=== PATIENT | female | born 1945 | race Two or more races ===

== ENCOUNTER 2020-02-28 20:21 | Inpatient (IN) | payer MEDICARE, MEDICAID ==
[~2020-02-28] VITALS: Ht 167.6 cm; Wt 63.5 kg
[~2020-02-28 20:21] MED LIST: ASPIR 8181 MG ORAL; HYDRALAZINE HCL25 M1 ORAL; HYDROCHLOROTHIA25 MG ORAL; VITAMIN D400 UNI2 PO
--- NOTE | 2020-02-28 20:24 | Emergency Room Report ---
History of Present Illness General Source: Patient, EMS (Claudio Colvin MD) Present Illness HPI Patient is a 74-year-old female brought in by EMS after increased generalized weakness. Patient was noted to have increased difficulty with breathing. No prior history of breast cancer. She had been receiving chemotherapy. Had not been having any vomiting. Denies any fever or cough. Gradual onset of general weakness. She been seen by her oncologist today.Patient is followed by oncologist whose office is in [place].Patient reports having a stage I breast cancer and had right-sided mastectomy in 2017. Denies any other prior history of cancer. Had been undergoing chemotherapy but had not been on chemotherapy recently. (Claudio Colvin MD) Allergies: Coded Allergies: No Known Allergies (Unverified , 11/07/19) Patient History Past Medical History: see triage record Reviewed Nursing Documentation: PMH: Agreed; PSxH: Agreed (Claudio Colvin MD) Review of Systems All Other Systems: negative except mentioned in HPI (Claudio Colvin MD) Physical Exam Sp02 EP Interpretation: reviewed, normal General Appearance: normal inspection, alert, GCS 15, Chronically Ill Head: atraumatic ENT: normal ENT inspection, hearing grossly normal, normal voice Neck: normal inspection, full range of motion, supple, no bony tend Respiratory: normal inspection, no respiratory distress, no retraction, no wheezing Cardiovascular #1: regular rate, rhythm, no edema Gastrointestinal: normal inspection, normal bowel sounds, non tender, soft, no guarding, no hernia Genitourinary: no CVA tenderness Musculoskeletal: normal inspection, back normal, normal range of motion Neurologic: alert, whipper beater III-XII nml as tested, oriented x3, responsive, speech normal, normal inspection Psychiatric: normal inspection, judgement/insight normal, mood/affect normal Skin: no rash (Claudio Colvin MD) Medical Decision Making Diagnostic Impression: Primary Impression: Episode of generalized weakness Additional Impressions: Breast CA Lymphopenia Pleural effusion, right New onset type 2 diabetes mellitus ARF (acute renal failure) Qualified Codes: N17.9 - Acute kidney failure, unspecified ER Course Patient presented for shortness of breath. Differential diagnosis include was not limited to pneumonia, bronchitis, pulmonary embolism, pleural effusion among others. Because of complexity of patient's case laboratory tests and imaging studies were ordered. Patient was noted to have prior history of breast cancer. Given the patient's shortness of breath or broad work up will be initiated.EKG interpreted by me showed normal sinus rhythm with a rate of [address] angiogram of the chest was ordered due to patient's markedly elevated d-dimer. Patient's CBC was noted for some pro myelocytes.Patient's metabolic panel was noted to have hemolyzed. Patient will be admitted to Dr. Magallon. Labs Test 02/28/20 20:00 02/28/20 21:00 White Blood Count 10.3 K/UL (4.8-10.8) Red Blood Count 5.88 M/UL (4.20-5.40) Hemoglobin 14.9 G/DL (12.0-16.0) Hematocrit 49.9 % (37.0-47.0) Mean Corpuscular Volume 85 FL (80-99) Mean Corpuscular Hemoglobin 25.3 PG (27.0-31.0) Mean Corpuscular Hemoglobin Concent 29.8 G/DL (32.0-36.0) Red Cell Distribution Width 14.5 % (11.6-14.8) Platelet Count 305 K/UL (150-450) Mean Platelet Volume 13.7 FL (6.5-10.1) Neutrophils (%) (Auto) % (45.0-75.0) Lymphocytes (%) (Auto) % (20.0-45.0) Monocytes (%) (Auto) % (1.0-10.0) Eosinophils (%) (Auto) % (0.0-3.0) Basophils (%) (Auto) % (0.0-2.0) Erythrocyte Sedimentation Rate 15 MM/HR (0-30) D-Dimer 9.00 mg/L FEU (0.00-0.49) Urine Color Pale yellow Urine Appearance Clear Urine pH 5 (4.5-8.0) Urine Specific [place] 1.010 (1.005-1.035) Urine Protein 1+ (NEGATIVE) Urine Glucose (UA) 4+ (NEGATIVE) Urine Ketones 3+ (NEGATIVE) Urine Blood 1+ (NEGATIVE) Urine Nitrite Negative (NEGATIVE) Urine Bilirubin Negative (NEGATIVE) Urine Urobilinogen Normal MG/DL (0.0-1.0) Urine Leukocyte Esterase 2+ (NEGATIVE) Urine RBC 0-2 /HPF (0 - 2) Urine WBC 2-4 /HPF (0 - 2) Urine Squamous Epithelial Cells Few /LPF (NONE/OCC) Urine Bacteria Few /HPF (NONE) Urine Yeast Few /HPF (NONE) (Claudio Colvin MD) ER Course This patient was signed out to me pending admission versus transfer. Patient is approved for admission here. He presents with chief complaint of generalized weakness and lack of strength. Labs showed acute renal failure with very high glucose. Patient does not have a history of diabetes. I suspect that her weakness is because of severe dehydration and diabetes. She says she has polyuria and polydipsia. This been ongoing for over a week. CT scan showed right pleural effusion which is actually improved from before. (Matt Tse MD) EKG Diagnostic Results EKG Time: 20:26 Rate: tachycardiac Rhythm: NSR ST Segments: other - Sinus tachycardia rate of 105 with slightly prolonged QT interval (Claudio Colvin MD) Rhythm Strip Diag. Results EP Interpretation: yes Rhythm: NSR, no PVC's, no ectopy (Claudio Colvin MD) CT/MRI/US Diagnostic Results CT/MRI/US Diagnostic Results : Imaging Test Ordered: CT chest without contrast Impression Read by radiologist. Pleural effusion on the right side. Clinically improved from prior exam. (Matt Tse MD) Status: unchanged (Claudio Colvin MD) Status: improved (Matt Tse MD) Disposition: ADMITTED INPATIENT Condition: Serious Claudio Colvin MD Feb 28, 2020 20:24 Matt Tse MD Feb 29, 2020 01:36
[2020-02-28 20:30] VITALS: BP 137/96
--- NOTE | 2020-02-28 20:30 | NUR ---
ED Nurse Note: Pt brought into ED from home by MAYCO [id number] for c/o weakness and elevated HR. Per MAYCO, pt had gone to her doctor appt today and upon waking up from a nap noticed an elevated HR and felt weak. Pt is aaox4, breathing is normal and unlabored. Pt connected to monitoring analyst and HR is 105 currently. No cough, SOB or fever noted. Will cont. to monitor. Pt denies any pain.
[2020-02-28 21:18] LABS: APPEARANCE,URINE CLEAR; BILIRUBIN, URINE NEGATIVE (NEGATIVE); COLOR,URINE PALE YELLOW; GLUCOSE, URINE (UA) 4+ (NEGATIVE); KETONES,URINE 3+ (NEGATIVE); LEUKOCYTE ESTERASE ,URINE 2+ (NEGATIVE); NITRITE,URINE NEGATIVE (NEGATIVE); PH,URINE 5 (4.5-8.0); PROTEIN,URINE 1+ (NEGATIVE); UROBILINOGEN,URINE NORMAL MG/DL (0.0-1.0)
[2020-02-28 21:23] LABS: HEMATOCRIT 49.9 % (37.0-47.0); HEMOGLOBIN 14.9 G/DL (12.0-16.0); MEAN CORPUSCULAR VOLUME 85 FL (80-99); PLATELET COUNT 305 K/UL (150-450); RED BLOOD COUNT 5.88 M/UL (4.20-5.40); RED CELL DISTRIBUTION WIDTH 14.5 % (11.6-14.8); WHITE BLOOD COUNT 10.3 K/UL (4.8-10.8)
[2020-02-28 22:30] VITALS: BP 150/97
[2020-02-28] MEDS ORDERED: Omnipaque 350 100ml vial INJ PRN (22:30)
--- NOTE | 2020-02-28 22:30 | NUR ---
ED Nurse Note: Pt is resting in bed at this time. No acute distress. VSS. Breathing is normal and unlabored, skin is dry and intact. Will cont. to monitor.
[2020-02-28 23:01] LABS: ANION GAP 23 mmol/L (5-15); BLOOD UREA NITROGEN 56 mg/dL (7-18); CALCIUM 10.9 MG/DL (8.5-10.1); CARBON DIOXIDE 20 MMOL/L (21-32); CHLORIDE 108 MMOL/L (98-107); POTASSIUM 5.4 MMOL/L (3.5-5.1); SODIUM 151 MMOL/L (136-145)
[2020-02-28 23:11] LABS: ALANINE AMINOTRANSFERASE 25 U/L (12-78); ALBUMIN 3.6 G/DL (3.4-5.0); ALBUMIN/GLOBULIN RATIO 0.6 (1.0-2.7); ALKALINE PHOSPHATASE 151 U/L (46-116); ASPARTATE AMINO TRANSFERASE 25 U/L (15-37); BILIRUBIN,TOTAL 0.6 MG/DL (0.2-1.0)
[2020-02-28] MEDS ORDERED: Miralax 17gm pkt ORAL PRN (23:30)
[2020-02-28] MEDS ORDERED: Nitroglycerin Subl 0.4mg tab SL PRN (23:30)
--- NOTE | 2020-02-28 23:35 | NUR ---
ED Nurse Note: Lab called with critical lab value, blood glucose elevated. Accu check done bedside and registered as critical high, ERMD aware.
[2020-02-28] MEDS ORDERED: Insulin Human Regular 100units/ml 3ml IV ONE (23:45)
--- NOTE | 2020-02-28 23:45 | NUR ---
ED Nurse Note: Pt states she has no other medical hx than HTN. She has not been diagnosed with diabetes, but has noticed an increased in oral intake and urinary frequency.
--- NOTE | 2020-02-28 23:50 | NUR ---
ED Nurse Note: Pt taken to CT.
[2020-02-29] VITALS (9 sets, daily range): BP systolic 133–161; BP diastolic 72–90
[2020-02-29] MEDS ORDERED: Azithromycin 250mg tab ORAL ONE
--- NOTE | 2020-02-29 00:20 | NUR ---
ED Nurse Note: Pt returned from CT, in stable condition.
[2020-02-29] MEDS ORDERED: Enoxaparin 40mg Inj SUBQ ONE (00:30)
--- NOTE | 2020-02-29 00:30 | NUR ---
ED Nurse Note: Pt repositioned. NAD noted. See vitals flowsheet. Safety measures in place. Will cont. to monitor.
[2020-02-29] MEDS: cefTRIAXone 1 GM in NS 55 ML IVPB SCH ×2 (00:33→23:15)
--- NOTE | 2020-02-29 00:35 | Diagnostic Imaging Report ---
EXAM: CT Chest Without Intravenous Contrast CLINICAL HISTORY: SOB TECHNIQUE: Axial computed tomography images of the chest without intravenous contrast. CTDI is 5 mGy and DLP is 165 mGy-cm. One or more of the following dose reduction techniques were used: automated exposure control, adjustment of the mA and/or kV according to patient size, use of iterative reconstruction technique. COMPARISON: 11/07/2019 FINDINGS: Lungs: No mass right lower lobe compressive atelectasis calcified granulomas.. Pleural space: No pneumothorax. Mild circumferential loculated pleural effusion on the right side. Nodular appearing pleural effusions along the right fissures. Heart: Normal heart size. No pericardial effusion. Bones/joints: No acute fracture. Soft tissues: 2.5 cm left thyroid gland nodule. Vasculature: Unremarkable. No thoracic aortic aneurysm. Lymph nodes: No enlarged lymph nodes. Upper abdomen: Unremarkable. IMPRESSION: Mild nodular circumferential loculated pleural effusion on the right side. Nodular appearing pleural effusions along the right fissures. This is significantly improved from the prior exam which showed severe pleural effusion with pulmonary edema. No significant edema is seen on the current study. The pleural effusion is nodular in appearance which is unusual. Likely due to underlying chronic pleural disease or neoplastic process.
[2020-02-29] MEDS ORDERED: Insulin Human Regular 100units/ml 3ml IV ONE ×3 (01:30→05:45)
--- NOTE | 2020-02-29 01:30 | NUR ---
ED Nurse Note: Pt assisted to bedside commode without complications.
[2020-02-29] MEDS ORDERED: Enoxaparin 60mg Inj SUBQ ONE ×2 (02:44→03:00)
--- NOTE | 2020-02-29 03:00 | NUR ---
ED Nurse Note: Pt is sleeping at this time. VSS. No acute distress.
[2020-02-29] MEDS ORDERED: HYDROCODON-ACE1 EA13 ORAL (05:11)
--- NOTE | 2020-02-29 05:15 | NUR ---
ED Nurse Note: Pt has 5 own medication bottles locked in med box in ED.
[2020-02-29 05:23] LABS: HEMATOCRIT 44.7 % (37.0-47.0); HEMOGLOBIN 14.2 G/DL (12.0-16.0); MEAN CORPUSCULAR VOLUME 80 FL (80-99); PLATELET COUNT 221 K/UL (150-450); RED BLOOD COUNT 5.56 M/UL (4.20-5.40); RED CELL DISTRIBUTION WIDTH 12.9 % (11.6-14.8); WHITE BLOOD COUNT 10.8 K/UL (4.8-10.8)
--- NOTE | 2020-02-29 05:30 | NUR ---
ED Nurse Note: Pt repositioned and provided with warm blankets. NAD, safety measures in place. Will continue to monitor. ERMD is aware of pt BS 471. See vitals flowsheet.
[2020-02-29 05:50] LABS: ALANINE AMINOTRANSFERASE 25 U/L (12-78); ALBUMIN 3.1 G/DL (3.4-5.0); ALBUMIN/GLOBULIN RATIO 0.6 (1.0-2.7); ALKALINE PHOSPHATASE 127 U/L (46-116); ANION GAP 16 mmol/L (5-15); ASPARTATE AMINO TRANSFERASE 27 U/L (15-37); BILIRUBIN,TOTAL 0.4 MG/DL (0.2-1.0); BLOOD UREA NITROGEN 52 mg/dL (7-18); CALCIUM 10.2 MG/DL (8.5-10.1); CARBON DIOXIDE 24 MMOL/L (21-32); CHLORIDE 120 MMOL/L (98-107); CREATININE 1.7 MG/DL (0.55-1.30); POTASSIUM 4.5 MMOL/L (3.5-5.1); SODIUM 160 MMOL/L (136-145)
--- NOTE | 2020-02-29 06:12 | NUR ---
HAND-OFF: Report given to DARYN Magana.
--- NOTE | 2020-02-29 06:16 | NUR ---
ED Nurse Note: Received report from Yaneth STEARNS. Pt alert and oriented x4, verbally responsive. Not in any distress. Will cont to monitor.
--- NOTE | 2020-02-29 06:36 | NUR ---
ED Nurse Note: SHANTELL accucheck: 335.
--- NOTE | 2020-02-29 07:11 | NUR ---
HAND-OFF: Report given to Kimmy STEARNS. Endoresed plan of care.
--- NOTE | 2020-02-29 07:25 | NUR ---
ED Nurse Note: care assummed, pt sleeping with even regular resp effort. NAD. vss monitor shows NSR no ectopy noted.
--- NOTE | 2020-02-29 08:50 | Diagnostic Imaging Report ---
Indication: Shortness of breath Technique: One view of the chest Comparison: 11/09/2019 Findings: Pleural thickening versus fluid on the right is again demonstrated. Infiltrate and/or atelectasis at the right lung base is again noted, slightly less than on the prior study. The left lung and pleural space are clear. The heart size is normal. Findings are similar to the prior exam Impression: Right lung pleural fluid versus thickening and infiltrate/atelectasis. Similar to the prior exam and adjacent may be a chronic component. Correlate with findings
[2020-02-29] MEDS: Docusate 100mg cap ORAL SCH ×2 (08:56→23:12)
--- NOTE | 2020-02-29 08:58 | NUR ---
ED Nurse Note: pt awkae and alert, oriented x4. pt takes po well. pt denies dyspnea or cough. pt eval by Skyler Shelton NP no new c/o
--- NOTE | 2020-02-29 10:21 | NUR ---
ED Nurse Note: dr russell aware of accucheck 383. awaiting new orders. md to speak with daughter on phone
[2020-02-29] MEDS ORDERED: Insulin NPH SUBQ ONE (11:00)
--- NOTE | 2020-02-29 11:15 | NUR ---
ED Nurse Note: pharmacy aware to bring pt inpt. med doses to ED. pt aware to have insulin dose prior to eating.
[2020-02-29] MEDS: Aspirin EC 81mg tab ORAL SCH (11:38)
[2020-02-29] MEDS: 1/2NS w/KCl 20mEq 1000ml 1,000 ML IV SCH ×2 (11:39→18:12)
[2020-02-29] MEDS: NovoLOG Insulin Flexpen SUBQ SCH ×3 (11:51→21:00)
--- NOTE | 2020-02-29 13:05 | NUR ---
ED Nurse Note: pt tolerates po well denies new c/o or dyspnea
--- NOTE | 2020-02-29 13:58 | NUR ---
ED Nurse Note: pt incontinent large amt urine, cleansed and pads changed.
--- NOTE | 2020-02-29 15:45 | Consultation ---
Samantha Shelton CONFERENCE ORGANIZER 02/29/20 1544: History of Present Illness General Date patient seen: Feb 29, 2020 Time patient seen: 11:30 Chief Complaint: Generalized Weakness Referring physician: Dr Magallon Reason for Consultation: SOB Present Illness HPI 74 years old female with past medical history of hypertension, right breast cancer , status post partial mastectomy/lumpectomy , status post chemotherapy ( last session in November 2018 ) was brought by paramedics due to generalized weakness and shortness of breath. Patient seen her oncologist , who is located at [place], prior to presentation to ED. When she returned home, she felt extremely weak and was lying down on the floor, unable to get up. She denies any falls. Her daughter found her like that and called paramedics. She denies fever or chills. She denies nausea , vomiting or abdominal pain. Upon evaluation patient was tachycardic and afebrile. Pulse oximetry was stable on room air. Laboratory work-up revealed no leukocytosis , but significant lymphopenia with lymphocyte percentage 8. ESR 16. Chemistry showed sodium 151, potassium 5.4, chloride 108. Glucose 885. Anion gap 23. BUN 56, creatinine 2.0. Calcium 10.9. Troponin negative x2. EKG revealed sinus rhythm , no acute ischemic changes. Stable LFT and lipase. TSH within normal limits. Urinalysis revealed +1 protein, +4 glucose, no evidence of urinary tract infection. Chest x-ray demonstrated right lung pleural fluid versus thickening and infiltrate/atelectasis similar to the prior exam . D-dimer 9. Patient subsequently undergone CT of the chest , which revealed mild nodular circumferential loculated pleural effusion on the right side. Significantly improved from the prior exam which showed severe pleural effusion with pulmonary edema. Nodular appearance of pleural effusion was unusual , likely due to underlying chronic pleural disease or neoplastic process. Of note on prior admission, patient had thoracentesis of large right pleural effusion x2 yielding 1.75 L and 1.25 L of pleural fluid. Cytology of pleural fluid revealed malignant cells. Pulmonary consult as requested to assist in respiratory management of this patient. Allergies: Coded Allergies: No Known Allergies (Unverified , 11/07/19) Medication History Scheduled Aspirin* (Aspir 81*), 81 MG ORAL DAILY, (Reported) Cholecalciferol (Vitamin D3) (Vitamin D), 400 UNIT PO DAILY, (Reported) Hydralazine Hcl* (Hydralazine Hcl*), 25 MG ORAL DAILY, (Reported) Hydrochlorothiazide* (Hydrochlorothiazide*), 25 MG ORAL DAILY, (Reported) Hydrocodone Bit/Acetaminophen 10-325* (Hydrocodon-Acetaminophn 10-325*), 1 TAB ORAL Q8H, (Reported) Patient History History Provided By: Patient, Medical Record, EMS Healthcare decision maker Resuscitation status Advanced Directive on File Past Medical/Surgical History Past Medical/Surgical History: (1) Breast CA (2) Pleural effusion, right Review of Systems Constitutional: Reports: weakness Eye: Reports: no symptoms ENT: Reports: no symptoms Respiratory: Reports: see HPI Cardiovascular: Reports: no symptoms Gastrointestinal: Reports: no symptoms Genitourinary: Reports: no symptoms Musculoskeletal: Reports: no symptoms Psychiatric: Reports: no symptoms Neurological: Reports: no symptoms Endocrine: Reports: no symptoms Hematologic/Lymphatic: Reports: no symptoms Physical Exam General Appearance: no apparent distress, alert, other - elderly AA female in NAD Lines, tubes and drains: peripheral HEENT: normocephalic, atraumatic, anicteric, mucous membranes moist, PERRL Neck: non-tender Respiratory/Chest: lungs clear - with moderate air exchange Cardiovascular/Chest: normal peripheral pulses, normal rate, no JVD Abdomen: normal bowel sounds, non tender, soft Extremities: normal range of motion, no calf tenderness, normal capillary refill Skin Exam: warm/dry, other - R breast healed surgical scar 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, no motor/sensory deficits, alert, responsive, normal mood/affect Musculoskeletal: normal muscle bulk Last 24 Hour Vital Signs Date Time Temp Pulse Resp B/P (MAP) Pulse Ox O2 Delivery O2 Flow Rate FiO2 02/29/20 11:16 97.5 83 20 136/81 98 Room Air 02/29/20 07:26 85 20 135/78 98 Room Air 02/29/20 06:16 97.2 85 20 161/90 98 Room Air 02/29/20 05:30 97.2 86 18 152/79 98 Room Air 02/29/20 03:00 98.1 90 24 133/89 98 Room Air 02/29/20 00:30 98.3 88 17 151/90 98 Room Air 02/28/20 22:30 98.1 97 20 150/97 98 Room Air 02/28/20 20:30 98.1 105 20 137/96 98 Room Air 02/28/20 20:30 105 20 Room Air 02/28/20 20:23 98.1 112 20 128/81 (97) 98 Room Air Laboratory Tests Test 02/28/20 20:00 02/28/20 21:00 02/28/20 22:30 02/29/20 04:55 White Blood Count 10.3 K/UL (4.8-10.8) 10.8 K/UL (4.8-10.8) Red Blood Count 5.88 M/UL (4.20-5.40) H 5.56 M/UL (4.20-5.40) H Hemoglobin 14.9 G/DL (12.0-16.0) 14.2 G/DL (12.0-16.0) Hematocrit 49.9 % (37.0-47.0) H 44.7 % (37.0-47.0) Mean Corpuscular Volume 85 FL (80-99) 80 FL (80-99) Mean Corpuscular Hemoglobin 25.3 PG (27.0-31.0) L 25.5 PG (27.0-31.0) L Mean Corpuscular Hemoglobin Concent 29.8 G/DL (32.0-36.0) L 31.7 G/DL (32.0-36.0) L Red Cell Distribution Width 14.5 % (11.6-14.8) 12.9 % (11.6-14.8) Platelet Count 305 K/UL (150-450) 221 K/UL (150-450) Mean Platelet Volume 13.7 FL (6.5-10.1) H 9.9 FL (6.5-10.1) Neutrophils (%) (Auto) % (45.0-75.0) % (45.0-75.0) Lymphocytes (%) (Auto) % (20.0-45.0) % (20.0-45.0) Monocytes (%) (Auto) % (1.0-10.0) % (1.0-10.0) Eosinophils (%) (Auto) % (0.0-3.0) % (0.0-3.0) Basophils (%) (Auto) % (0.0-2.0) % (0.0-2.0) Differential Total Cells Counted 100 100 Neutrophils % (Manual) 82 % (45-75) H 89 % (45-75) H Lymphocytes % (Manual) 8 % (20-45) L 8 % (20-45) L Monocytes % (Manual) 3 % (1-10) 3 % (1-10) Eosinophils % (Manual) 0 % (0-3) 0 % (0-3) Basophils % (Manual) 1 % (0-2) 0 % (0-2) Promyelocytes % 4 % (0-0) H Band Neutrophils 2 % (0-8) 0 % (0-8) Platelet Estimate Adequate Adequate Platelet Morphology Normal Normal Red Blood Cell Morphology Normal Erythrocyte Sedimentation Rate 15 MM/HR (0-30) D-Dimer 9.00 mg/L FEU (0.00-0.49) H Urine Color Pale yellow Urine Appearance Clear Urine pH 5 (4.5-8.0) Urine Specific [place] 1.010 (1.005-1.035) Urine Protein 1+ (NEGATIVE) H Urine Glucose (UA) 4+ (NEGATIVE) H Urine Ketones 3+ (NEGATIVE) H Urine Blood 1+ (NEGATIVE) H Urine Nitrite Negative (NEGATIVE) Urine Bilirubin Negative (NEGATIVE) Urine Urobilinogen Normal MG/DL (0.0-1.0) Urine Leukocyte Esterase 2+ (NEGATIVE) H Urine RBC 0-2 /HPF (0 - 2) Urine WBC 2-4 /HPF (0 - 2) Urine Squamous Epithelial Cells Few /LPF (NONE/OCC) Urine Bacteria Few /HPF (NONE) Urine Yeast Few /HPF (NONE) H Sodium Level 151 MMOL/L (136-145) H 160 MMOL/L (136-145) H Potassium Level 5.4 MMOL/L (3.5-5.1) H 4.5 MMOL/L (3.5-5.1) Chloride Level 108 MMOL/L (98-107) H 120 MMOL/L (98-107) H Carbon Dioxide Level 20 MMOL/L (21-32) L 24 MMOL/L (21-32) Anion Gap 23 mmol/L (5-15) H 16 mmol/L (5-15) H Blood Urea Nitrogen 56 mg/dL (7-18) H 52 mg/dL (7-18) H Creatinine 2.0 MG/DL (0.55-1.30) H 1.7 MG/DL (0.55-1.30) H Estimat Glomerular Filtration Rate 24.4 mL/min (>60) 29.5 mL/min (>60) Glucose Level 885 MG/DL (74-106) *H 516 MG/DL (74-106) #*H Calcium Level 10.9 MG/DL (8.5-10.1) H 10.2 MG/DL (8.5-10.1) H Total Bilirubin 0.6 MG/DL (0.2-1.0) 0.4 MG/DL (0.2-1.0) Aspartate Amino Transf (AST/SGOT) 25 U/L (15-37) 27 U/L (15-37) Alanine Aminotransferase (ALT/SGPT) 25 U/L (12-78) 25 U/L (12-78) Alkaline Phosphatase 151 U/L (46-116) H 127 U/L (46-116) H Troponin I 0.000 ng/mL (0.000-0.056) 0.000 ng/mL (0.000-0.056) Total Protein 9.7 G/DL (6.4-8.2) H 8.6 G/DL (6.4-8.2) H Albumin 3.6 G/DL (3.4-5.0) 3.1 G/DL (3.4-5.0) L Globulin 6.1 g/dL 5.5 g/dL Albumin/Globulin Ratio 0.6 (1.0-2.7) L 0.6 (1.0-2.7) L Lipase 347 U/L (73-393) Thyroid Stimulating Hormone (TSH) 0.755 uiU/mL (0.358-3.740) 0.645 uiU/mL (0.358-3.740) Microcytosis 1+ Carcinoembryonic Antigen Pending CA 15-3 Antigen Pending CA 19-9 Antigen Pending CA 27.29 Pending Test 02/29/20 05:25 Prothrombin Time 10.9 SEC (9.30-11.50) Prothromb Time International Ratio 1.0 (0.9-1.1) Height (Feet): 5 Height (Inches): 6.00 Weight (Pounds): 140 Medications Current Medications Medications (Trade) Dose Ordered Sig/Lizandro Route PRN Reason Start Time Stop Time Status Last Admin Dose Admin Acetaminophen (Tylenol) 650 mg Q4H PRN ORAL Mild Pain (Pain Scale 1-3) 02/28/20 23:30 03/29/20 23:29 Acetaminophen (Tylenol) 650 mg Q4H PRN ORAL Temp >100.5 02/28/20 23:30 03/29/20 23:29 Aspirin (Ecotrin) 81 mg DAILY ORAL 02/29/20 10:30 04/14/20 10:29 02/29/20 11:38 Azithromycin (Zithromax) 250 mg QHS ORAL 02/29/20 21:00 03/07/20 20:59 Ceftriaxone Sodium 1 gm/ Sodium Chloride 55 ml @ 110 mls/hr Q24HRS IVPB 02/29/20 00:00 03/07/20 00:00 02/29/20 00:33 Dextrose (Dextrose 50%) 25 ml Q30M PRN IV Hypoglycemia 02/29/20 10:30 05/29/20 10:29 Dextrose (Dextrose 50%) 50 ml Q30M PRN IV Hypoglycemia 02/29/20 10:30 05/29/20 10:29 Docusate Sodium (Colace) 100 mg EVERY 12 HOURS ORAL 02/29/20 09:00 03/30/20 08:59 02/29/20 08:56 Enoxaparin Sodium (Lovenox) 30 mg DAILY SUBQ 03/01/20 09:00 05/30/20 08:59 Insulin Aspart (NovoLOG) BEFORE MEALS AND HS SUBQ 02/29/20 11:30 05/29/20 11:29 02/29/20 11:51 Insulin Detemir (Levemir) 16 units BEDTIME SUBQ 02/29/20 21:00 05/29/20 20:59 Iohexol (Omnipaque 350 100ml) 100 ml NOW PRN INJ Radiology Procedure 02/28/20 22:30 03/01/20 22:20 Nitroglycerin (Ntg) 0.4 mg Q5M X 3 DOSES PRN SL Prn Chest Pain 02/28/20 23:30 03/29/20 23:29 Polyethylene Glycol (Miralax) 17 gm HSPRN PRN ORAL Constipation 02/28/20 23:30 03/29/20 23:29 Sodium 1,000 ml @ 150 mls/hr Q6H40M IV 02/29/20 10:30 03/30/20 10:29 02/29/20 11:39 Assessment/Plan Assessment/Plan: ASSESSMENT SOB Metastatic breast Ca Loculated recurrent right pleural effusion, likely malignant Possible underlying PNA Lymphopenia Possible CoVID infection ( given immunocompromised status, lymphopenia, SOB) ELMA on ? CKD New onset of DM with DKA E/lyte imbalance ( hyper Na, hyper K) Hypercalcemia ? of malignancy Elevated D dimer PLAN OF CARE supplemental oxygen titrate to keep sat above 90% MDI with spacer prn fup woth SARS -CoV-2 by PCR result keep in isolation for now keep on empriic abx as ordered by PMD for now, doubt PNA though fup with CXR cytology of pleural fluid on 11/13/2019 revealed malignant cells probably malignant pleural effusion, currently small and loculated, monitor with fup imaging cancer tumor markers pending Venous Duplex BLE DVT prophayxlsi BS management with LA and SA insulins as per PMD ( anion gap down to 16 this am) , check HgA1c; diabetic diet monitor renal parameters, lytes -per primary/nephro , avoid nephrotoxics IVF case discussed and evaluated by supervising physician Mando Babin MD 03/01/20 1701: History of Present Illness General Chief Complaint: Generalized Weakness Present Illness Allergies: Coded Allergies: No Known Allergies (Unverified , 11/07/19) Medication History Scheduled Aspirin* (Aspir 81*), 81 MG ORAL DAILY, (Reported) Cholecalciferol (Vitamin D3) (Vitamin D), 400 UNIT PO DAILY, (Reported) Hydralazine Hcl* (Hydralazine Hcl*), 25 MG ORAL DAILY, (Reported) Hydrochlorothiazide* (Hydrochlorothiazide*), 25 MG ORAL DAILY, (Reported) Hydrocodone Bit/Acetaminophen 10-325* (Hydrocodon-Acetaminophn 10-325*), 1 TAB ORAL Q8H, (Reported) Assessment/Plan Assessment/Plan: Patient seen and examined, d/w RN and team, agree with plan as outlined about by CONFERENCE ORGANIZER, reflects out joint assessment. Samantha Shelton NP Feb 29, 2020 15:44 Mando Babin MD Mar 01, 2020 17:01
--- NOTE | 2020-02-29 16:29 | History and Physical Report ---
DATE OF ADMISSION: 02/28/2020 CHIEF COMPLAINT AND REASON FOR HOSPITALIZATION: The patient is a 74-year-old lady with history of breast cancer admitted with weakness, hyperglycemia, abnormal laboratories. HISTORY OF PRESENT ILLNESS: The patient has history of breast cancer status post chemotherapy and right-sided breast surgery and she saw doctor last week and was stable. She was hospitalized here on October 2019 had a large right pleural effusion that was tapped and showed malignant cells. Apparently she said she was on the floor and could not get up and that is the reason she came in. She has generalized weakness and polyuria, found to have a glucose of 885 in the emergency room. She also had some shortness of breath. There is no evidence of acidosis on her chemistries but she had 3+ ketones in the urine. ALLERGIES: None known. PAST MEDICAL HISTORY: History of breast cancer, hypertension, hyperlipidemia. MEDICATIONS: Prior to admission medication, the patient states she took cholesterol pill and a blood pressure pill per the ER record. Apparently she brought medicines, aspirin 81 mg daily, vitamin D 400 units daily, hydralazine 25 mg daily, hydrochlorothiazide 25 mg daily, and Magazine 10 p.r.n. HABITS: She is a nondrinker and nonsmoker. SYSTEM REVIEW: HEAD, EYES, EARS, NOSE, AND THROAT: Vision and hearing is good. ENDOCRINE: She is not aware of diabetes or thyroid disease in the past. PULMONARY: Mild dyspnea on exertion. No productive cough. CARDIAC: No angina or [place]. GASTROINTESTINAL: No nausea, vomiting, or abdominal pain. GENITOURINARY: No dysuria, hematuria, but she has polyuria. PHYSICAL EXAMINATION: GENERAL: The patient is alert lady, thin, in no acute distress. VITAL SIGNS: Temperature 97.2, pulse 85, respiratory rate 21, blood pressure 161/90. HEAD, EYES, EARS, NOSE, AND THROAT: Sclerae are nonicteric. Ocular motions intact in all directions. Oral mucosa dry. NECK: No adenopathy. LUNGS: Clear. Slightly diminished breath sounds at the bases. HEART: Regular rhythm. No murmur. ABDOMEN: Soft without organomegaly. EXTREMITIES: No edema. NEUROLOGIC: She is alert and responsive. Cranial nerves are intact. No focal findings. BREASTS: Deferred at this time. She recently saw oncologist. PERTINENT LABORATORY DATA: Glucose of 885, subsequently 516. BUN 56, creatinine 2, sodium 151, potassium 5.4. White count 10.8, hemoglobin 14.2. Imaging showed a small right pleural effusion. IMPRESSION: 1. Uncontrolled diabetes. 2. Dehydration and acute kidney injury. 3. Hypernatremia. 4. Malignant effusion and metastatic breast cancer. 5. Generalized weakness. 6. Found on the floor, unsure if she can ambulate appropriately. 7. Hypertension. PLAN: The patient will be hydrated, placed on insulin. Observe her clinical course. Condition is complex and will require several days of hydration, diabetic monitoring. Mir Magallon M.D. DR: Carlo JOB#: [id number] CC:
--- NOTE | 2020-02-29 16:50 | NUR ---
ED Nurse Note: awaiting dinner tray to administer insulin dose. pt with vss. dneies new c/o
--- NOTE | 2020-02-29 17:58 | NUR ---
ED Nurse Note: Pt tolerates food tray well. denies c/o
--- NOTE | 2020-02-29 19:10 | NUR ---
ED Nurse Note: RECEIVED REPORT FROM TEJAL STEARNS. WILL RESUME CARE OF PATIENT.
--- NOTE | 2020-02-29 20:32 | NUR ---
ED Nurse Note: gave report to Chelsie STEARNS
[2020-02-29] MEDS ORDERED: Levemir Flexpen SUBQ SCH (21:00)
[2020-02-29] MEDS ORDERED: Albuterol 90mcg Inhaler 8gm INH PRN (21:01)
--- NOTE | 2020-02-29 21:15 | NUR ---
TRANSFER TO FLOOR: Patient transferred to [facility] via [facility] in stable condition as ordered, per Dr. Magallon. Report given to Chelsie STEARNS. Belongings sent with patient.
[2020-02-29] MEDS: Azithromycin 250mg tab ORAL SCH (23:12)
[2020-03-01] VITALS: BP 159/95
[2020-03-01] MEDS: 1/2NS w/KCl 20mEq 1000ml 1,000 ML IV SCH ×4 (00:45→20:04)
[2020-03-01 04:00] VITALS: BP 156/80
[2020-03-01] MEDS: NovoLOG Insulin Flexpen SUBQ SCH ×4 (06:03→21:22)
[2020-03-01 07:11] LABS: HEMATOCRIT 36.3 % (37.0-47.0); HEMOGLOBIN 11.8 G/DL (12.0-16.0); MEAN CORPUSCULAR VOLUME 80 FL (80-99); PLATELET COUNT 159 K/UL (150-450); RED BLOOD COUNT 4.55 M/UL (4.20-5.40); RED CELL DISTRIBUTION WIDTH 12.7 % (11.6-14.8); WHITE BLOOD COUNT 11.9 K/UL (4.8-10.8)
[2020-03-01 07:30] LABS: ALANINE AMINOTRANSFERASE 22 U/L (12-78); ALBUMIN 2.6 G/DL (3.4-5.0); ALBUMIN/GLOBULIN RATIO 0.6 (1.0-2.7); ALKALINE PHOSPHATASE 105 U/L (46-116); ANION GAP 9 mmol/L (5-15); ASPARTATE AMINO TRANSFERASE 37 U/L (15-37); BILIRUBIN,TOTAL 0.4 MG/DL (0.2-1.0); BLOOD UREA NITROGEN 31 mg/dL (7-18); CARBON DIOXIDE 26 MMOL/L (21-32); CHLORIDE 119 MMOL/L (98-107); CREATININE 1.1 MG/DL (0.55-1.30); PHOSPHORUS 2.5 MG/DL (2.5-4.9); POTASSIUM 4.2 MMOL/L (3.5-5.1); SODIUM 154 MMOL/L (136-145)
--- NOTE | 2020-03-01 07:30 | NUR ---
NURSE NOTES: Received patient on bed awake. No SOB or acute distress. IV line intact and patent. HOB elevated. Bed locked in lowest position. Call light within reach. Will continue plan of care. Addendum: 03/01/20 at 1616 by Winsome Alfaro RN IV lines on right AC g20 and right hand g22 intact.
[2020-03-01 08:00] VITALS: BP 149/88
[2020-03-01] MEDS: Aspirin EC 81mg tab ORAL SCH (08:34)
[2020-03-01] MEDS: Docusate 100mg cap ORAL SCH ×2 (08:34→21:15)
--- NOTE | 2020-03-01 08:51 | NUR ---
CASE MANAGEMENT:REVIEW 74 YR OLD FEMALE BIBA FROM HOME CC: GENERALIZED WEAKNESS PMH: BREAST CANCER SI: ACUTE RENAL FAILURE. NEW ONSET DM RT PLEURAL EFFUSION. LYMPHOPENIA 98.0 112 20 128/81 98% ON RA NA+160 BUN+55 CR+2.0 GLUCOSE+885 IS: 1L NS BOLUS IV INSULIN X4 AZITHROMYCIN PO X1 LOVENOX SQ X1 CT CHEST : TO TELEMETRY UNIT PLAN: R/O COVID 19....RESULTS PENDING
[2020-03-01] MEDS ORDERED: Enoxaparin 30mg Inj SUBQ SCH (09:00)
--- NOTE | 2020-03-01 09:14 | NUR ---
*-* NO INSURANCE INFORMATION IN THE BAR UNABLE TO SEND CLINICALS OR REVIEWS *-*
--- NOTE | 2020-03-01 09:16 | NUR ---
*-* INSURANCE *-* ALL CLINICALS AND REVIEWS HAVE BEEN FAXED TO: [facility] P: [phone]. OPT 1 F: [phone]
--- NOTE | 2020-03-01 09:32 | Pulmonology Progress Note ---
Samantha Shelton COMMERCIAL LOAN COORDINATOR 03/01/20 0932: Assessment/Plan Assessment/Plan ASSESSMENT SOB Metastatic breast Ca Loculated recurrent right pleural effusion, likely malignant Possible underlying PNA Lymphopenia Possible CoVID infection ( given immunocompromised status, lymphopenia, SOB) ELMA on ? CKD New onset of DM with DKA E/lyte imbalance ( hyper Na, hyper K) Hypercalcemia ? of malignancy Elevated D dimer Mild leukocytosis Fungal UTI PLAN OF CARE tele supplemental oxygen titrate to keep sat above 90% ; pulse ox so far stable on RA MDI with spacer prn fup with SARS -CoV-2 by PCR pending keep in isolation for now keep on empiric abx as ordered by PMD for now, doubt PNA though fup with CXR cytology of pleural fluid on 11/13/2019 revealed malignant cells probably malignant pleural effusion, currently small and loculated, monitor with fup imaging cancer tumor markers elevated Ca 15-3- 46; CA 27-29 100.2, CA 19-9 pending ; CEA WNL Venous Duplex BLE DVT prophylaxis mild leukcoytosis this am, - ? reactive due to malignancy vs fungal UTI UCX + yeast > 100K - per primary management BS management with LA and SA insulins as per PMD ( anion gap down to 16 this am) , check [id number]-[id number] ; diabetic diet need diabetic teaching monitor renal parameters, lytes -per primary/nephro , avoid nephrotoxics c creat down ; still hyper Na IVF case discussed and evaluated by supervising physician Subjective Allergies: Coded Allergies: No Known Allergies (Unverified , 11/07/19) Subjective still weak pulse ox stable on RA CoVID by PCR pending mild leukocytosis, no fevers creatinine down to normal BS better, HgA1c 11.8 Objective Last 24 Hour Vital Signs Date Time Temp Pulse Resp B/P (MAP) Pulse Ox O2 Delivery O2 Flow Rate FiO2 03/01/20 08:00 98.6 78 18 149/88 (108) 97 03/01/20 04:00 96.8 74 18 156/80 (105) 98 03/01/20 04:00 69 03/01/20 01:20 Room Air 03/01/20 00:00 97.4 80 21 159/95 (116) 97 02/29/20 21:15 97.6 83 18 147/79 99 Room Air 81 02/29/20 20:43 97.6 81 18 147/79 99 Room Air 02/29/20 19:10 97.4 83 18 158/81 99 Room Air 02/29/20 15:00 97.5 83 18 134/72 98 Room Air 02/29/20 11:16 97.5 83 20 136/81 98 Room Air Intake and Output 02/29/20 03/01/20 19:00 07:00 Intake Total 750 ml Balance 750 ml Intake Oral 750 ml # Voids 3 Objective General Appearance: no apparent distress, alert, elderly AA female in NAD Lines, tubes and drains: peripheral HEENT: normocephalic, atraumatic, anicteric, mucous membranes moist, PERRL Neck: non-tender Respiratory/Chest: lungs clear with moderate air exchange Cardiovascular/Chest: normal peripheral pulses, normal rate, no JVD Abdomen: normal bowel sounds, non tender, soft Extremities: normal range of motion, no calf tenderness, normal capillary refill Skin Exam: warm/dry, other - R breast healed surgical scar Neurologic: studio model II-XII grossly normal, no motor/sensory deficits, alert, responsive, normal mood/affect Musculoskeletal: normal muscle bulk Microbiology Date/Time Source Procedure Growth Status 02/28/20 21:33 Blood Blood Culture - Preliminary NO GROWTH AFTER 24 HOURS Resulted 02/28/20 21:15 Blood Blood Culture - Preliminary NO GROWTH AFTER 24 HOURS Resulted 02/28/20 21:00 Urine,Clean Catch Urine Culture - Preliminary Yeast Species Resulted Laboratory Tests 03/01/20 06:30: White Blood Count 11.9H, Red Blood Count 4.55, Hemoglobin 11.8L, Hematocrit 36.3L, Mean Corpuscular Volume 80, Mean Corpuscular Hemoglobin 25.9L, Mean Corpuscular Hemoglobin Concent 32.4, Red Cell Distribution Width 12.7, Platelet Count 159, Mean Platelet Volume 10.4H, Neutrophils (%) (Auto) , Lymphocytes (%) (Auto) , Monocytes (%) (Auto) , Eosinophils (%) (Auto) , Basophils (%) (Auto) , Differential Total Cells Counted 100, Neutrophils % (Manual) 78H, Lymphocytes % (Manual) 15L, Monocytes % (Manual) 7, Eosinophils % (Manual) 0, Basophils % ( Manual) 0, Band Neutrophils 0, Platelet Estimate Adequate, Platelet Morphology Normal, Red Blood Cell Morphology Normal, Sodium Level 154H, Potassium Level 4.2 , Chloride Level 119H, Carbon Dioxide Level 26, Anion Gap 9, Blood Urea Nitrogen 31H, Creatinine 1.1, Estimat Glomerular Filtration Rate 48.7, Glucose Level 299#H, Calcium Level 9.0, Phosphorus Level 2.5, Magnesium Level 2.7H, Total Bilirubin 0.4, Aspartate Amino Transf (AST/SGOT) 37, Alanine Aminotransferase (ALT/SGPT) 22, Alkaline Phosphatase 105, Total Protein 7.1, Albumin 2.6L, Globulin 4.5, Albumin/Globulin Ratio 0.6L Current Medications Medications (Trade) Dose Ordered Sig/Lizandro Route PRN Reason Start Time Stop Time Status Last Admin Dose Admin Acetaminophen (Tylenol) 650 mg Q4H PRN ORAL Mild Pain (Pain Scale 1-3) 02/28/20 23:30 03/29/20 23:29 Acetaminophen (Tylenol) 650 mg Q4H PRN ORAL Temp >100.5 02/28/20 23:30 03/29/20 23:29 Albuterol Sulfate (Proventil MDI) 2 puff Q4H PRN INH Shortness of Breath 02/29/20 21:01 05/29/20 21:00 Aspirin (Ecotrin) 81 mg DAILY ORAL 02/29/20 10:30 04/14/20 10:29 03/01/20 08:34 Azithromycin (Zithromax) 250 mg QHS ORAL 02/29/20 21:00 03/07/20 20:59 02/29/20 23:12 Ceftriaxone Sodium 1 gm/ Sodium Chloride 55 ml @ 110 mls/hr Q24HRS IVPB 02/29/20 00:00 03/07/20 00:00 02/29/20 23:15 Dextrose (Dextrose 50%) 25 ml Q30M PRN IV Hypoglycemia 02/29/20 10:30 05/29/20 10:29 Dextrose (Dextrose 50%) 50 ml Q30M PRN IV Hypoglycemia 02/29/20 10:30 05/29/20 10:29 Docusate Sodium (Colace) 100 mg EVERY 12 HOURS ORAL 02/29/20 09:00 03/30/20 08:59 03/01/20 08:34 Enoxaparin Sodium (Lovenox) 30 mg DAILY SUBQ 03/01/20 09:00 05/30/20 08:59 03/01/20 08:36 Insulin Aspart (NovoLOG) BEFORE MEALS AND HS SUBQ 02/29/20 11:30 05/29/20 11:29 03/01/20 06:03 Insulin Detemir (Levemir) 16 units BEDTIME SUBQ 02/29/20 21:00 05/29/20 20:59 02/29/20 21:00 Iohexol (Omnipaque 350 100ml) 100 ml NOW PRN INJ Radiology Procedure 02/28/20 22:30 03/01/20 22:20 Nitroglycerin (Ntg) 0.4 mg Q5M X 3 DOSES PRN SL Prn Chest Pain 02/28/20 23:30 03/29/20 23:29 Polyethylene Glycol (Miralax) 17 gm HSPRN PRN ORAL Constipation 02/28/20 23:30 03/29/20 23:29 Sodium 1,000 ml @ 150 mls/hr Q6H40M IV 02/29/20 10:30 03/30/20 10:29 03/01/20 00:45 Mando Babin MD 03/01/20 1704: Assessment/Plan Assessment/Plan Patient seen and examined, d/w RN and team, agree with plan as outlined about by COMMERCIAL LOAN COORDINATOR, reflects out joint assessment. -F/U COVID PCR -PRN O2 -PRN HFA via spacer, no HHN's -Continue Azithro -CT ordered by ER MD given elevated D-dimer but done non-contrast d/t ELMA --> F/ U Duplex and VQ (once off iso) -Continue LMWH -mIVF -Dr. Fam to assume PULMONARY & IM CARE as of tommorrow am - D/w him Subjective Allergies: Coded Allergies: No Known Allergies (Unverified , 11/07/19) Samantha Shelton NP Mar 01, 2020 09:32 Mando Babin MD Mar 01, 2020 17:04
[2020-03-01] MEDS: Nateglinide 60mg tab ORAL SCH ×2 (11:49→17:53)
[2020-03-01 12:00] VITALS: BP 146/83
--- NOTE | 2020-03-01 15:31 | General Progress Note ---
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 ICD Codes: C50.919 - Malignant neoplasm of unspecified site of unspecified female breast; C78.00 - Secondary malignant neoplasm of unspecified lung SNOMED: 34772554, 726646475, 735469450 (2) Hypernatremia ICD Codes: E87.0 - Hyperosmolality and hypernatremia SNOMED: 696937438 (3) Dehydration ICD Codes: E86.0 - Dehydration SNOMED: 99404979 (4) Hyperglycemia due to diabetes mellitus ICD Codes: E11.65 - Type 2 diabetes mellitus with hyperglycemia SNOMED: 65849359, 753865151 (5) ARF (acute renal failure) ICD Codes: N17.9 - Acute kidney failure, unspecified SNOMED: 31445099 Qualifiers: Qualified Codes: N17.9 - Acute kidney failure, unspecified (6) Pleural effusion, right ICD Codes: J90 - Pleural effusion, not elsewhere classified SNOMED: 11488477 (7) Episode of generalized weakness ICD Codes: R53.1 - Weakness SNOMED: 72294723 (8) New onset type 2 diabetes mellitus ICD Codes: E11.9 - Type 2 diabetes mellitus without complications SNOMED: 30459143 Assessment/Plan: hydration, f/u lytes, adjust insulin and oral agents Subjective Constitutional: Reports: weakness HEENT: Reports: no symptoms Cardiovascular: Reports: no symptoms Respiratory: Reports: no symptoms Genitourinary: Reports: no symptoms Neurologic/Psychiatric: Reports: no symptoms Endocrine: Reports: increased thirst Hematologic/Lymphatic: Reports: no symptoms Allergies: Coded Allergies: No Known Allergies (Unverified , 11/07/19) Objective Last 24 Hour Vital Signs Date Time Temp Pulse Resp B/P (MAP) Pulse Ox O2 Delivery O2 Flow Rate FiO2 03/01/20 12:00 98.1 75 19 146/83 (104) 98 03/01/20 12:00 74 03/01/20 09:00 Room Air 03/01/20 08:00 71 03/01/20 08:00 98.6 78 18 149/88 (108) 97 03/01/20 04:00 96.8 74 18 156/80 (105) 98 03/01/20 04:00 69 03/01/20 01:20 Room Air 03/01/20 00:00 97.4 80 21 159/95 (116) 97 02/29/20 21:15 97.6 83 18 147/79 99 Room Air 81 02/29/20 20:43 97.6 81 18 147/79 99 Room Air 02/29/20 19:10 97.4 83 18 158/81 99 Room Air Intake and Output 02/29/20 03/01/20 19:00 07:00 Intake Total 750 ml Balance 750 ml Intake Oral 750 ml # Voids 3 Laboratory Tests 03/01/20 06:30: White Blood Count 11.9H, Red Blood Count 4.55, Hemoglobin 11.8L, Hematocrit 36.3L, Mean Corpuscular Volume 80, Mean Corpuscular Hemoglobin 25.9L, Mean Corpuscular Hemoglobin Concent 32.4, Red Cell Distribution Width 12.7, Platelet Count 159, Mean Platelet Volume 10.4H, Neutrophils (%) (Auto) , Lymphocytes (%) (Auto) , Monocytes (%) (Auto) , Eosinophils (%) (Auto) , Basophils (%) (Auto) , Differential Total Cells Counted 100, Neutrophils % (Manual) 78H, Lymphocytes % (Manual) 15L, Monocytes % (Manual) 7, Eosinophils % (Manual) 0, Basophils % ( Manual) 0, Band Neutrophils 0, Platelet Estimate Adequate, Platelet Morphology Normal, Red Blood Cell Morphology Normal, Sodium Level 154H, Potassium Level 4.2 , Chloride Level 119H, Carbon Dioxide Level 26, Anion Gap 9, Blood Urea Nitrogen 31H, Creatinine 1.1, Estimat Glomerular Filtration Rate 48.7, Glucose Level 299#H, Calcium Level 9.0, Phosphorus Level 2.5, Magnesium Level 2.7H, Total Bilirubin 0.4, Aspartate Amino Transf (AST/SGOT) 37, Alanine Aminotransferase (ALT/SGPT) 22, Alkaline Phosphatase 105, Total Protein 7.1, Albumin 2.6L, Globulin 4.5, Albumin/Globulin Ratio 0.6L Height (Feet): 5 Height (Inches): 6.00 Weight (Pounds): 140 General Appearance: no apparent distress, alert EENT: normal ENT inspection Neck: normal alignment Cardiovascular: normal rate, regular rhythm Respiratory/Chest: lungs clear Abdomen: non tender, soft Edema: no edema noted Arm (L), no edema noted Arm (R), no edema noted Leg (L), no edema noted Leg (R), no edema noted Pedal (L), no edema noted Pedal (R), no edema noted Generalized Mir Magallon MD Mar 01, 2020 15:31
[2020-03-01 16:00] VITALS: BP 140/78
--- NOTE | 2020-03-01 17:03 | History & Physical ---
History and Physical History & Physicial CHIEF COMPLAINT AND REASON FOR HOSPITALIZATION: The patient is a 74-year-old lady with history of breast cancer admitted with weakness, hyperglycemia, abnormal laboratories. HISTORY OF PRESENT ILLNESS: This is a 74 year old female with a history of breast cancer status post chemotherapy and right-sided breast surgery. She was hospitalized on October 2019 had a large right pleural effusion that was tapped and showed malignant cells. Apparently she said she was on the floor and could not get up and that is the reason she came in. She has generalized weakness and polyuria, found to have a glucose of 885 in the emergency room. She also had some shortness of breath. There is no evidence of acidosis on her chemistries but she had 3+ ketones in the urine. ALLERGIES: None known. PAST MEDICAL HISTORY: History of breast cancer, hypertension, hyperlipidemia. MEDICATIONS: Prior to admission medication, the patient states she took cholesterol pill and a blood pressure pill per the ER record. Apparently she brought medicines, aspirin 81 mg daily, vitamin D 400 units daily, hydralazine 25 mg daily, hydrochlorothiazide 25 mg daily, and [place] 10 p.r.n. HABITS: She is a nondrinker and nonsmoker. SYSTEM REVIEW: HEAD, EYES, EARS, NOSE, AND THROAT: Vision and hearing is good. ENDOCRINE: She is not aware of diabetes or thyroid disease in the past. PULMONARY: Mild dyspnea on exertion. No productive cough. CARDIAC: No angina or [place]. GASTROINTESTINAL: No nausea, vomiting, or abdominal pain. GENITOURINARY: No dysuria, hematuria, but she has polyuria. PHYSICAL EXAMINATION: GENERAL: The patient is alert lady, thin, in no acute distress. VITAL SIGNS: Temperature 97.2, pulse 85, respiratory rate 21, blood pressure 161/90. HEAD, EYES, EARS, NOSE, AND THROAT: Sclerae are nonicteric. Ocular motions intact in all directions. Oral mucosa dry. NECK: No adenopathy. LUNGS: Clear. Slightly diminished breath sounds at the bases. HEART: Regular rhythm. No murmur. ABDOMEN: Soft without organomegaly. EXTREMITIES: No edema. NEUROLOGIC: She is alert and responsive. Cranial nerves are intact. No focal findings. BREASTS: Deferred at this time. She recently saw oncologist. PERTINENT LABORATORY DATA: Glucose of 885, subsequently 516. BUN 56, creatinine 2, sodium 151, potassium 5.4. White count 10.8, hemoglobin 14.2. Imaging showed a small right pleural effusion. IMPRESSION: 1. Uncontrolled diabetes. 2. Dehydration and acute kidney injury. 3. Hypernatremia. 4. Malignant effusion and metastatic breast cancer. 5. Generalized weakness. 6. Found on the floor, unsure if she can ambulate appropriately. 7. Hypertension. PLAN: The patient will be hydrated, placed on insulin. Observe her clinical course. Pulmonary hygiene. WIll follow Harshil Bentley M.D., MD Mar 01, 2020 17:03
--- NOTE | 2020-03-01 19:35 | NUR ---
NURSE NOTES: Received pt and report from DARYN Schumacher. Observed pt resting in bed with both eyes closed; arousable to voice. Pt is A/Ox3. campus monitor is in placed; pt is NSR. IV site intact, asymptomatic and patent; running 1/2 NS w/KCL 20mEq @150cc/hr. Bed is in the lowest position and locked. Call light and bedside table is within reach. No signs/symptoms of acute distress noted at this time. Will continue plan of care.
--- NOTE | 2020-03-01 19:46 | NUR ---
HAND-OFF: Report given to pablito.
[2020-03-01 20:00] VITALS: BP 136/76
[2020-03-01] MEDS: Azithromycin 250mg tab ORAL SCH (21:15)
[2020-03-01] MEDS: Levemir Flexpen SUBQ SCH (21:23)
[2020-03-02] VITALS: BP 128/83
[2020-03-02] MEDS: cefTRIAXone 1 GM in NS 55 ML IVPB SCH (00:44)
[2020-03-02] MEDS: 1/2NS w/KCl 20mEq 1000ml 1,000 ML IV SCH ×3 (02:52→16:04)
[2020-03-02 04:00] VITALS: BP 118/82
[2020-03-02] MEDS: Nateglinide 60mg tab ORAL SCH ×3 (06:30→16:04)
[2020-03-02] MEDS: NovoLOG Insulin Flexpen SUBQ SCH ×4 (06:32→20:56)
--- NOTE | 2020-03-02 07:30 | NUR ---
HAND-OFF: Report given to DARYN Schumacher. Plan of care endorsed.
--- NOTE | 2020-03-02 07:31 | NUR ---
NURSE NOTES: Received patient on bed awake. No SOB or acute distress. IV lines intact and patent. HOB elevated. Bed locked in lowest position. Call light within reach. Will continue plan of care.
[2020-03-02 08:00] VITALS: BP 134/80
[2020-03-02 08:22] LABS: BASOPHILS % (AUTO) 0.9 % (0.0-2.0); EOSINOPHILS % (AUTO) 0.2 % (0.0-3.0); HEMATOCRIT 38.3 % (37.0-47.0); HEMOGLOBIN 12.3 G/DL (12.0-16.0); LYMPHOCYTES % (AUTO) 14.4 % (20.0-45.0); MEAN CORPUSCULAR VOLUME 81 FL (80-99); NEUTROPHILS % (AUTO) 81.5 % (45.0-75.0); PLATELET COUNT 149 K/UL (150-450); RED BLOOD COUNT 4.74 M/UL (4.20-5.40); RED CELL DISTRIBUTION WIDTH 13.1 % (11.6-14.8)
[2020-03-02] MEDS: Docusate 100mg cap ORAL SCH ×2 (08:23→20:47)
[2020-03-02] MEDS: Aspirin EC 81mg tab ORAL SCH (08:23)
[2020-03-02] MEDS: Enoxaparin 40mg Inj SUBQ SCH (08:25)
[2020-03-02 08:56] LABS: ANION GAP 12 mmol/L (5-15); BLOOD UREA NITROGEN 16 mg/dL (7-18); CALCIUM 8.7 MG/DL (8.5-10.1); CARBON DIOXIDE 23 MMOL/L (21-32); CHLORIDE 111 MMOL/L (98-107); CREATININE 0.9 MG/DL (0.55-1.30); POTASSIUM 4.2 MMOL/L (3.5-5.1); SODIUM 146 MMOL/L (136-145)
[2020-03-02 12:00] VITALS: BP 121/61
--- NOTE | 2020-03-02 12:48 | Pulmonology Progress Note ---
Assessment/Plan Assessment/Plan IMPRESSION: 1. Uncontrolled diabetes. 2. Dehydration and acute kidney injury. 3. Hypernatremia. 4. Malignant effusion and metastatic breast cancer. 5. Generalized weakness. 6. Found on the floor, unsure if she can ambulate appropriately. 7. Hypertension. PLAN: The patient will be hydrated, placed on insulin. Observe her clinical course. Pulmonary hygiene. Will follow Harshil Fam M.D. Subjective Interval Events: None new Constitutional: Reports: no symptoms HEENT: Repors: no symptoms Respiratory: Reports: no symptoms Cardiovascular: Reports: no symptoms Gastrointestinal/Abdominal: Reports: no symptoms Allergies: Coded Allergies: No Known Allergies (Unverified , 11/07/19) Objective Last 24 Hour Vital Signs Date Time Temp Pulse Resp B/P (MAP) Pulse Ox O2 Delivery O2 Flow Rate FiO2 03/02/20 09:00 Room Air 03/02/20 08:00 67 03/02/20 08:00 97.8 71 20 134/80 (98) 99 03/02/20 04:00 98.0 72 19 118/82 (94) 97 03/02/20 04:00 69 03/02/20 00:00 97.8 71 18 128/83 (98) 98 03/02/20 00:00 71 03/01/20 21:00 Room Air 03/01/20 20:00 76 03/01/20 20:00 97.1 76 20 136/76 (96) 96 03/01/20 16:00 69 03/01/20 16:00 96.7 80 20 140/78 (98) 96 Intake and Output 03/01/20 03/02/20 19:00 07:00 Intake Total 1040 ml 230 ml Output Total 1200 ml Balance -160 ml 230 ml Intake Oral 140 ml 230 ml IV Total 900 ml Output Urine Total 1200 ml # Voids 3 2 General Appearance: no acute distress HEENT: normocephalic Respiratory/Chest: chest wall non-tender, lungs clear Cardiovascular: normal peripheral pulses, normal rate Abdomen: normal bowel sounds Microbiology Date/Time Source Procedure Growth Status 02/28/20 21:33 Blood Blood Culture - Preliminary NO GROWTH AFTER 48 HOURS Resulted 02/28/20 21:15 Blood Blood Culture - Preliminary NO GROWTH AFTER 48 HOURS Resulted 02/28/20 23:00 Nasopharynx Coronavirus COVID-19 PCR (VANESSA) - Final Complete 02/28/20 21:00 Urine,Clean Catch Urine Culture - Final Cheli Albicans Complete Laboratory Tests 03/02/20 07:00: White Blood Count 8.0, Red Blood Count 4.74, Hemoglobin 12.3, Hematocrit 38.3, Mean Corpuscular Volume 81, Mean Corpuscular Hemoglobin 25.9L, Mean Corpuscular Hemoglobin Concent 32.0, Red Cell Distribution Width 13.1, Platelet Count 149L, Mean Platelet Volume 10.9H, Neutrophils (%) (Auto) 81.5H, Lymphocytes (%) (Auto ) 14.4L, Monocytes (%) (Auto) 3.0, Eosinophils (%) (Auto) 0.2, Basophils (%) ( Auto) 0.9, Sodium Level 146H, Potassium Level 4.2, Chloride Level 111H, Carbon Dioxide Level 23, Anion Gap 12, Blood Urea Nitrogen 16, Creatinine 0.9, Estimat Glomerular Filtration Rate > 60, Glucose Level 161#H, Calcium Level 8.7 Current Medications Medications (Trade) Dose Ordered Sig/Lizandro Route PRN Reason Start Time Stop Time Status Last Admin Dose Admin Acetaminophen (Tylenol) 650 mg Q4H PRN ORAL Mild Pain (Pain Scale 1-3) 02/28/20 23:30 03/29/20 23:29 Acetaminophen (Tylenol) 650 mg Q4H PRN ORAL Temp >100.5 02/28/20 23:30 03/29/20 23:29 Albuterol Sulfate (Proventil MDI) 2 puff Q4H PRN INH Shortness of Breath 02/29/20 21:01 05/29/20 21:00 Aspirin (Ecotrin) 81 mg DAILY ORAL 02/29/20 10:30 04/14/20 10:29 03/02/20 08:23 Azithromycin (Zithromax) 250 mg QHS ORAL 02/29/20 21:00 03/07/20 20:59 03/01/20 21:15 Ceftriaxone Sodium 1 gm/ Sodium Chloride 55 ml @ 110 mls/hr Q24HRS IVPB 02/29/20 00:00 03/07/20 00:00 03/02/20 00:44 Dextrose (Dextrose 50%) 25 ml Q30M PRN IV Hypoglycemia 02/29/20 10:30 05/29/20 10:29 Dextrose (Dextrose 50%) 50 ml Q30M PRN IV Hypoglycemia 02/29/20 10:30 05/29/20 10:29 Docusate Sodium (Colace) 100 mg EVERY 12 HOURS ORAL 02/29/20 09:00 03/30/20 08:59 03/02/20 08:23 Enoxaparin Sodium (Lovenox) 40 mg DAILY SUBQ 03/02/20 09:00 05/31/20 08:59 03/02/20 08:25 Insulin Aspart (NovoLOG) BEFORE MEALS AND HS SUBQ 02/29/20 11:30 05/29/20 11:29 03/02/20 11:51 Insulin Detemir (Levemir) 24 units BEDTIME SUBQ 03/01/20 21:00 05/30/20 20:59 03/01/20 21:23 Nateglinide (Starlix) 60 mg TIAC ORAL 03/01/20 11:30 03/31/20 11:29 03/02/20 11:49 Nitroglycerin (Ntg) 0.4 mg Q5M X 3 DOSES PRN SL Prn Chest Pain 02/28/20 23:30 03/29/20 23:29 Polyethylene Glycol (Miralax) 17 gm HSPRN PRN ORAL Constipation 02/28/20 23:30 03/29/20 23:29 Sitagliptin Phosphate (Januvia) 100 mg ACBREAKFAST ORAL 03/01/20 10:30 03/31/20 10:29 03/02/20 06:30 Sodium 1,000 ml @ 150 mls/hr Q6H40M IV 02/29/20 10:30 03/30/20 10:29 03/02/20 08:25 Harshil Fam MD Mar 02, 2020 12:48
[2020-03-02 16:00] VITALS: BP 127/72
--- NOTE | 2020-03-02 16:29 | NUR ---
PT Note PT eval completed. Patient is independent in all mobility and gait. Patient was instructed on safety precautions and to continue to ambulate as able. She verbalized her understanding. No further PT needed at this time.
--- NOTE | 2020-03-02 17:09 | Nephrology Progress Note ---
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 (2) Hypernatremia (3) Dehydration (4) Hyperglycemia due to diabetes mellitus (5) ARF (acute renal failure) (6) Pleural effusion, right (7) Episode of generalized weakness (8) New onset type 2 diabetes mellitus Plan glu 156-206 better, lytes better, gradual titration insulin and po meds Subjective Constitutional: Reports: weakness HEENT: Reports: no symptoms Genitourinary: Reports: no symptoms Neurologic/Psychiatric: Reports: no symptoms Objective Objective Last 24 Hour Vital Signs Date Time Temp Pulse Resp B/P (MAP) Pulse Ox O2 Delivery O2 Flow Rate FiO2 03/02/20 16:00 97.8 81 20 127/72 (90) 96 03/02/20 12:00 74 03/02/20 12:00 97.5 81 20 121/61 (81) 98 03/02/20 09:00 Room Air 03/02/20 08:00 67 03/02/20 08:00 97.8 71 20 134/80 (98) 99 03/02/20 04:00 98.0 72 19 118/82 (94) 97 03/02/20 04:00 69 03/02/20 00:00 97.8 71 18 128/83 (98) 98 03/02/20 00:00 71 03/01/20 21:00 Room Air 03/01/20 20:00 76 03/01/20 20:00 97.1 76 20 136/76 (96) 96 Intake and Output 03/01/20 03/02/20 19:00 07:00 Intake Total 1040 ml 230 ml Output Total 1200 ml Balance -160 ml 230 ml Intake Oral 140 ml 230 ml IV Total 900 ml Output Urine Total 1200 ml # Voids 3 2 Laboratory Tests 03/02/20 07:00: White Blood Count 8.0, Red Blood Count 4.74, Hemoglobin 12.3, Hematocrit 38.3, Mean Corpuscular Volume 81, Mean Corpuscular Hemoglobin 25.9L, Mean Corpuscular Hemoglobin Concent 32.0, Red Cell Distribution Width 13.1, Platelet Count 149L, Mean Platelet Volume 10.9H, Neutrophils (%) (Auto) 81.5H, Lymphocytes (%) (Auto ) 14.4L, Monocytes (%) (Auto) 3.0, Eosinophils (%) (Auto) 0.2, Basophils (%) ( Auto) 0.9, Sodium Level 146H, Potassium Level 4.2, Chloride Level 111H, Carbon Dioxide Level 23, Anion Gap 12, Blood Urea Nitrogen 16, Creatinine 0.9, Estimat Glomerular Filtration Rate > 60, Glucose Level 161#H, Calcium Level 8.7 Height (Feet): 5 Height (Inches): 6.00 Weight (Pounds): 140 General Appearance: no apparent distress, alert EENT: normal ENT inspection Neck: normal alignment Cardiovascular: normal rate Respiratory/Chest: lungs clear Extremities: no edema Neurologic: call worker II-XII grossly normal Mir Magallon MD Mar 02, 2020 17:09
--- NOTE | 2020-03-02 19:35 | NUR ---
NURSE NOTES: Received pt and report from DARYN Schumacher. Observed pt resting in bed with both eyes open. Pt is A/Ox3. court monitor is in placed; pt is NSR. IV site intact, asymptomatic and patent. Bed is in the lowest position and locked. Call light and bedside table is within reach. No signs/symptoms of acute distress noted at this time. Will continue plan of care.
--- NOTE | 2020-03-02 19:45 | NUR ---
HAND-OFF: Report given to Nicole STEARNS.
[2020-03-02 20:00] VITALS: BP 139/69
[2020-03-02] MEDS: Azithromycin 250mg tab ORAL SCH (20:47)
[2020-03-02] MEDS: Levemir Flexpen SUBQ SCH (20:56)
[2020-03-03] VITALS: BP 121/70
[2020-03-03] MEDS: cefTRIAXone 1 GM in NS 55 ML IVPB SCH (00:22)
[2020-03-03 04:00] VITALS: BP 119/76
[2020-03-03] MEDS: Nateglinide 60mg tab ORAL SCH ×2 (06:33→12:09)
[2020-03-03] MEDS: NovoLOG Insulin Flexpen SUBQ SCH ×2 (06:41→12:08)
--- NOTE | 2020-03-03 07:40 | NUR ---
NURSE NOTES: Received pt and report from DARYN Tinoco. Pt is A/Ox4 and able to make needs known. Noted sinus rhythm. IV site intact. No c/o pain. Bed is in the lowest position and locked. Call light and bedside table is within reach. No signs/symptoms of acute distress noted at this time. Will continue plan of care.
--- NOTE | 2020-03-03 07:51 | NUR ---
HAND-OFF: Report given to DARYN Pizarro. Plan of care endorsed.
[2020-03-03 08:00] VITALS: BP 131/75
[2020-03-03 08:07] LABS: BASOPHILS % (AUTO) 0.7 % (0.0-2.0); EOSINOPHILS % (AUTO) 0.5 % (0.0-3.0); HEMATOCRIT 29.7 % (37.0-47.0); HEMOGLOBIN 9.7 G/DL (12.0-16.0); LYMPHOCYTES % (AUTO) 16.7 % (20.0-45.0); MEAN CORPUSCULAR VOLUME 79 FL (80-99); MONOCYTES % (AUTO) 6.5 % (1.0-10.0); NEUTROPHILS % (AUTO) 75.5 % (45.0-75.0); PLATELET COUNT 100 K/UL (150-450); RED BLOOD COUNT 3.74 M/UL (4.20-5.40); RED CELL DISTRIBUTION WIDTH 12.5 % (11.6-14.8); WHITE BLOOD COUNT 6.7 K/UL (4.8-10.8)
[2020-03-03 08:56] LABS: ANION GAP 7 mmol/L (5-15); BLOOD UREA NITROGEN 14 mg/dL (7-18); CALCIUM 8.4 MG/DL (8.5-10.1); CARBON DIOXIDE 24 MMOL/L (21-32); CHLORIDE 113 MMOL/L (98-107); CREATININE 0.8 MG/DL (0.55-1.30); POTASSIUM 3.8 MMOL/L (3.5-5.1); SODIUM 144 MMOL/L (136-145)
[2020-03-03] MEDS: Enoxaparin 40mg Inj SUBQ SCH (09:00)
[2020-03-03] MEDS: Aspirin EC 81mg tab ORAL SCH (09:30)
[2020-03-03] MEDS: Docusate 100mg cap ORAL SCH (09:30)
--- NOTE | 2020-03-03 12:47 | Pulmonology Progress Note ---
Assessment/Plan Assessment/Plan IMPRESSION: 1. Uncontrolled diabetes. 2. Dehydration and acute kidney injury. 3. Hypernatremia. 4. Malignant effusion and metastatic breast cancer. 5. Generalized weakness. 6. COVID 19 negative 7. Hypertension. PLAN: Much improved COVID 19 negative WIll dc home Harshil Fam M.D. Subjective Interval Events: None new Constitutional: Reports: no symptoms HEENT: Repors: no symptoms Respiratory: Reports: no symptoms Cardiovascular: Reports: no symptoms Gastrointestinal/Abdominal: Reports: no symptoms Allergies: Coded Allergies: No Known Allergies (Unverified , 11/07/19) Objective Last 24 Hour Vital Signs Date Time Temp Pulse Resp B/P (MAP) Pulse Ox O2 Delivery O2 Flow Rate FiO2 03/03/20 09:00 Room Air 03/03/20 08:00 63 03/03/20 08:00 97.9 71 18 131/75 (93) 95 03/03/20 04:00 97.9 72 18 119/76 (90) 96 03/03/20 04:00 69 03/03/20 00:00 98.8 74 17 121/70 (87) 97 03/02/20 23:58 71 03/02/20 21:00 Room Air 03/02/20 20:00 98.1 81 17 139/69 (92) 97 03/02/20 19:32 68 03/02/20 16:00 97.8 81 20 127/72 (90) 96 03/02/20 16:00 74 Intake and Output 03/02/20 03/03/20 19:00 07:00 Intake Total 320 ml Balance 320 ml Intake Oral 320 ml # Voids 2 # Bowel Movements 1 General Appearance: no acute distress HEENT: normocephalic Respiratory/Chest: chest wall non-tender, lungs clear Cardiovascular: normal peripheral pulses, normal rate Abdomen: normal bowel sounds Laboratory Tests 03/03/20 06:06: White Blood Count 6.7, Red Blood Count 3.74L, Hemoglobin 9.7L, Hematocrit 29.7L , Mean Corpuscular Volume 79L, Mean Corpuscular Hemoglobin 26.0L, Mean Corpuscular Hemoglobin Concent 32.7, Red Cell Distribution Width 12.5, Platelet Count 100L, Mean Platelet Volume 11.3H, Neutrophils (%) (Auto) 75.5H, Lymphocytes (%) (Auto) 16.7L, Monocytes (%) (Auto) 6.5, Eosinophils (%) (Auto) 0.5, Basophils (%) (Auto) 0.7, Sodium Level 144, Potassium Level 3.8, Chloride Level 113H, Carbon Dioxide Level 24, Anion Gap 7, Blood Urea Nitrogen 14, Creatinine 0.8, Estimat Glomerular Filtration Rate > 60, Glucose Level 244H, Calcium Level 8.4L Current Medications Medications (Trade) Dose Ordered Sig/Lizandro Route PRN Reason Start Time Stop Time Status Last Admin Dose Admin Acetaminophen (Tylenol) 650 mg Q4H PRN ORAL Mild Pain (Pain Scale 1-3) 02/28/20 23:30 03/29/20 23:29 Acetaminophen (Tylenol) 650 mg Q4H PRN ORAL Temp >100.5 02/28/20 23:30 03/29/20 23:29 Albuterol Sulfate (Proventil MDI) 2 puff Q4H PRN INH Shortness of Breath 02/29/20 21:01 05/29/20 21:00 Aspirin (Ecotrin) 81 mg DAILY ORAL 02/29/20 10:30 04/14/20 10:29 03/03/20 09:30 Azithromycin (Zithromax) 250 mg QHS ORAL 02/29/20 21:00 03/07/20 20:59 03/02/20 20:47 Ceftriaxone Sodium 1 gm/ Sodium Chloride 55 ml @ 110 mls/hr Q24HRS IVPB 02/29/20 00:00 03/07/20 00:00 03/03/20 00:22 Dextrose (Dextrose 50%) 25 ml Q30M PRN IV Hypoglycemia 02/29/20 10:30 05/29/20 10:29 Dextrose (Dextrose 50%) 50 ml Q30M PRN IV Hypoglycemia 02/29/20 10:30 05/29/20 10:29 Docusate Sodium (Colace) 100 mg EVERY 12 HOURS ORAL 02/29/20 09:00 03/30/20 08:59 03/03/20 09:30 Enoxaparin Sodium (Lovenox) 40 mg DAILY SUBQ 03/02/20 09:00 05/31/20 08:59 03/02/20 08:25 Insulin Aspart (NovoLOG) BEFORE MEALS AND HS SUBQ 02/29/20 11:30 05/29/20 11:29 03/03/20 12:08 Insulin Detemir (Levemir) 24 units BEDTIME SUBQ 03/01/20 21:00 05/30/20 20:59 03/02/20 20:56 Nateglinide (Starlix) 60 mg TIAC ORAL 03/01/20 11:30 03/31/20 11:29 03/03/20 12:09 Nitroglycerin (Ntg) 0.4 mg Q5M X 3 DOSES PRN SL Prn Chest Pain 02/28/20 23:30 03/29/20 23:29 Polyethylene Glycol (Miralax) 17 gm HSPRN PRN ORAL Constipation 02/28/20 23:30 03/29/20 23:29 Sitagliptin Phosphate (Januvia) 100 mg ACBREAKFAST ORAL 03/01/20 10:30 03/31/20 10:29 03/03/20 06:33 Harshil Fam MD Mar 03, 2020 12:47
[2020-03-03] MEDS ORDERED: STARLIX60 MG ORAL (12:51)
[2020-03-03] MEDS ORDERED: ASPIRIN EC81 MG ORAL (12:51)
[2020-03-03] MEDS ORDERED: LEVEMIR FL100 UNIT/1 SUBQ (12:51)
[2020-03-03] MEDS ORDERED: JANUVIA100 MG ORAL (12:51)
--- NOTE | 2020-03-03 14:56 | Nephrology Progress Note ---
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 (2) Hypernatremia (3) Dehydration (4) Hyperglycemia due to diabetes mellitus (5) ARF (acute renal failure) (6) Pleural effusion, right (7) Episode of generalized weakness (8) New onset type 2 diabetes mellitus Plan glu 200's better, lytes better, gradual titration insulin and po meds, increae nategelide 120 tid,diabetic teaching Subjective Constitutional: Reports: weakness HEENT: Reports: no symptoms Genitourinary: Reports: no symptoms Neurologic/Psychiatric: Reports: no symptoms Objective Objective Last 24 Hour Vital Signs Date Time Temp Pulse Resp B/P (MAP) Pulse Ox O2 Delivery O2 Flow Rate FiO2 03/03/20 12:00 70 03/03/20 09:00 Room Air 03/03/20 08:00 63 03/03/20 08:00 97.9 71 18 131/75 (93) 95 03/03/20 04:00 97.9 72 18 119/76 (90) 96 03/03/20 04:00 69 03/03/20 00:00 98.8 74 17 121/70 (87) 97 03/02/20 23:58 71 03/02/20 21:00 Room Air 03/02/20 20:00 98.1 81 17 139/69 (92) 97 03/02/20 19:32 68 03/02/20 16:00 97.8 81 20 127/72 (90) 96 03/02/20 16:00 74 Intake and Output 03/02/20 03/03/20 19:00 07:00 Intake Total 320 ml Balance 320 ml Intake Oral 320 ml # Voids 2 # Bowel Movements 1 Laboratory Tests 03/03/20 06:06: White Blood Count 6.7, Red Blood Count 3.74L, Hemoglobin 9.7L, Hematocrit 29.7L , Mean Corpuscular Volume 79L, Mean Corpuscular Hemoglobin 26.0L, Mean Corpuscular Hemoglobin Concent 32.7, Red Cell Distribution Width 12.5, Platelet Count 100L, Mean Platelet Volume 11.3H, Neutrophils (%) (Auto) 75.5H, Lymphocytes (%) (Auto) 16.7L, Monocytes (%) (Auto) 6.5, Eosinophils (%) (Auto) 0.5, Basophils (%) (Auto) 0.7, Sodium Level 144, Potassium Level 3.8, Chloride Level 113H, Carbon Dioxide Level 24, Anion Gap 7, Blood Urea Nitrogen 14, Creatinine 0.8, Estimat Glomerular Filtration Rate > 60, Glucose Level 244H, Calcium Level 8.4L Height (Feet): 5 Height (Inches): 6.00 Weight (Pounds): 140 General Appearance: no apparent distress, alert EENT: normal ENT inspection Neck: normal alignment Cardiovascular: normal rate Respiratory/Chest: lungs clear Extremities: no edema Neurologic: manager fiber II-XII grossly normal Mir Magallon MD Mar 03, 2020 14:56
--- NOTE | 2020-03-03 15:13 | NUR ---
Discharge: Patient is being discharged from medical care. Awake, alert and oriented x4. After care instructions, including referral to community resources were given. Patient verbalized understanding of After care instructions; at this time patient does not request equipment or placement. Pt demonstrated well how to administer Insulin Levemir including s/s of hyper/hypoglycemia, when to call the doctor, how to use insulin and how to keep the insulin after/before use. Patient signed patient consent in the medical record for patient destination upon discharge. All medical devices such as IV,delinquent account clerk and ID band were removed. Patient ambulated out with all personal belongings with steady gait to [facility] gait to wait for her taxi. Taxi voucher, discharge Rx provided.
[2020-03-03] MEDS ORDERED: Nateglinide 60mg tab ORAL SCH (16:30)
--- NOTE | 2020-03-03 18:17 | Discharge Summary ---
Discharge Summary Discharge Summary _ DATE OF ADMISSION: 02/29/2020 DATE OF DISCHARGE: 03/03/2020 DISCHARGED BY: Dr. Fam REASON FOR ADMISSION: 74 years old female with past medical history of hypertension, right breast cancer, status post partial mastectomy/lumpectomy, status post chemotherapy with last session in November 2018 , was brought by paramedics due to generalized weakness and shortness of breath. Patient apparently seen her oncologist , who is located at [place] , prior to presentation to ED. When she returned home , she felt extremely weak and was lying on the floor , unable to get up. She denied any falls. She denied any loss of consciousness. No fever or chills. No chest pain . No nausea , vomiting or abdominal pain Upon evaluation patient was tachycardic and afebrile. Pulse oximetry was stable on room air. Laboratory work-up revealed no leukocytosis, with but significant lymphopenia lymphocyte percentage of 8. ESR 16. Glucose 885. BUN 56, creatinine 2.0. Troponin negative x2. EKG revealed sinus rhythm , no acute ischemic changes. TSH within normal limits. Stable LFT and lipase. Urinalysis revealed +1 protein , +4 glucose, but no evidence of urinary tract infection. Chest x-ray demonstrated right lung pleural fluid versus thickening and infiltrate/atelectasis, similar to the prior exam. D-dimer 9. Patient subsequently undergone CT of the chest , which revealed mild nodular circumferential loculated pleural effusion on the right side, significantly improved from the prior exam. Nodular appearance of pleural effusion was unusual, likely due to underlying chronic pleural disease or neoplastic process. Of note, on prior admission patient had thoracentesis of large right pleural effusion x2 yielding 1.75 and 1.25 L of pleural fluid. Cytology of pleural fluid revealed malignant cells. Patient was swabbed fro CoVID 19 . Patient was admitted for further management. HOSPITAL COURSE: Patient admitted to telemetry floor to isolation room. Supplemental oxygen titrated to keep saturation above 90%. Pulse oximetry was stable on room air. MDI with spacer was on board as needed. SARS-CoV-2 by PCR came back non-detected. Isolation was discontinued Blood cultures were negative. Patient initially started on empiric antibiotic. Cancer tumor markers revealed elevated CA-15-3- 46 , elevated CA-27-29 - 100.2 . CA-19-9 pending at the time of this dictation. CEA was within normal limits. DVT prophylaxis provided. Blood sugar was managed with long-acting and short acting insulin. Hemoglobin A1c 11.8. Diabetic diet and diabetic teaching provided. Renal parameters and electrolytes were closely monitored, nephrotoxins were avoided. With IV hydration sodium down to 144 ,creatinine down to 0.8 from initial 2.0. Glucose down to 244. Patient clinically stabilized and was ready for discharge home with outpatient follow-up with a primary care provider FINAL DIAGNOSES: Metastatic breast cancer Malignant pleural effusion Suspected COVID-19 infection - rule dout Diabetes mellitus [id number] Acute kidney injury due to dehydration- resolved Hypernatremia due to dehydration -resolved Hypertension DISCHARGE MEDICATIONS: See Medication Reconciliation list. DISCHARGE INSTRUCTIONS: Patient was discharged home. Followup with primary care provider in 1 to 2 weeks via phone. Samantha Shelton NP Mar 03, 2020 18:17
--- NOTE | 2020-03-04 16:12 | NUR ---
*-* INSURANCE *-* ALL CLINICALS AND REVIEWS HAVE BEEN FAXED TO: [employer] P: [phone]. [employer] F: [phone] Addendum: 03/05/20 at 1105 by HANY DIMAS CM DISCHARGE SUMMARY HAS BEEN FAXED
== END 2020-03-03 15:13 | disposition home or self-care (01) | DRG 597 ==
LOC: EDBD 20:21 → EMR 20:40 → 2E 02-29 00:34 → EDBEDREQ 02-29 20:07 → 2E 02-29 21:39
DX: C50.911 Malignant neoplasm of unspecified site of right female breast (principal); E11.10 Type 2 diabetes mellitus with ketoacidosis without coma; N17.9 Acute kidney failure, unspecified; N39.0 Urinary tract infection, site not specified; C78.00 Secondary malignant neoplasm of unspecified lung; E87.0 Hyperosmolality and hypernatremia; J91.0 Malignant pleural effusion; E86.0 Dehydration; Z85.3 Personal history of malignant neoplasm of breast; Z79.82 Long term (current) use of aspirin; E83.52 Hypercalcemia
CPT/HCPCS: 36415; 71045; 71250; 80048; 80053; 81001; 82378; 82962; 83036; 83690; 83735; 84100; 84443; 84484; 85007; 85025; 85379; 85610; 85651; 86300; 86301; 87040; 87086; 87635; 93005; 99285; J1815; J7030; S5561

== ENCOUNTER 2020-06-15 12:27 | Inpatient (IN) | payer MEDICARE, MEDICAID ==
[~2020-06-15] VITALS: Ht 162.6 cm; Wt 64.4 kg
[~2020-06-15 12:27] MED LIST changes: +ASPIRIN EC81 MG ORAL; +HYDROCODON-ACE1 EA13 ORAL; +JANUVIA100 MG ORAL; +LEVEMIR FL100 UNIT/1 SUBQ; +STARLIX60 MG ORAL
[2020-06-15 12:40] VITALS: BP 150/90
--- NOTE | 2020-06-15 12:40 | NUR ---
ED Nurse Note: pt walked in to to ED for C/O pain to right hip (06/17). pt also reports having chest tightness x 3 days. denies any cough or SOB.
[2020-06-15] MEDS ORDERED: fentaNYL 100 mcg/2 mL IV ONE (12:45)
--- NOTE | 2020-06-15 12:47 | Emergency Room Report ---
History of Present Illness General Chief Complaint: Back Pain-No Injury Source: Patient Present Illness HPI Patient is a 74-year-old female past medical history of chronic pain, diabetes and hypertension who presents the ER with multiple complaints. Patient complains of right hip pain and mid back pain that has been present for the past 3 days. She states that she just woke up with it. She also complains of chest tightness over the past 3 days. She denies any shortness of breath. She denies any fever or chills. She denies any nausea or vomiting. She denies any focal weakness. She denies any trauma. She denies any history of osteoporosis. Patient is ambulating without difficulty. Patient states that she took Palatine for her pain which helped. Patient denies any history of smoking or recent travel. She states that she does spend a lot of time in bed. Allergies: Coded Allergies: No Known Allergies (Unverified , 11/07/19) COVID-19 Screening Contact w/high risk pt: No Recent Travel to affected area: No Experienced COVID-19 symptoms?: No COVID-19 Testing performed QUALITY TECH: Yes - 03/02 COVID-19 Screening: Negative COVID-19 COVID-19 Testing Source: CONTENT DEVELOPMENT SPECIALIST Patient History Reviewed Nursing Documentation: PMH: Agreed; PSxH: Agreed Nursing Documentation-PMH Past Medical History: No History, Except For Hx Cardiac Problems: Yes Hx Hypertension: Yes Hx Diabetes: Yes Hx Cancer: Yes - breast Hx Gastrointestinal Problems: No Hx Neurological Problems: No Review of Systems All Other Systems: negative except mentioned in HPI Physical Exam Vital Signs Date Time Temp Pulse Resp B/P (MAP) Pulse Ox O2 Delivery O2 Flow Rate FiO2 06/15/20 12:33 98.2 101 16 141/83 (102) 97 Room Air Sp02 EP Interpretation: reviewed, normal General Appearance: no apparent distress, alert, GCS 15, non-toxic Head: normocephalic, atraumatic Eyes: bilateral eye normal inspection, bilateral eye PERRL ENT: hearing grossly normal, normal pharynx, no angioedema, normal voice Neck: full range of motion, supple/symm/no masses Respiratory: chest non-tender, speaking full sentences Cardiovascular #1: no edema, tachycardia Gastrointestinal: normal bowel sounds, non tender, soft, non-distended, no guarding, no rebound Rectal: deferred Musculoskeletal: normal inspection, normal range of motion, no calf tenderness Neurologic: motor strength/tone normal, director of consumer marketing III-XII nml as tested Psychiatric: no suicidal/homicidal ideation Skin: no rash Lymphatic: no adenopathy Medical Decision Making Diagnostic Impression: Primary Impression: Pneumonia Additional Impression: UTI (urinary tract infection) ER Course Patient has been pancultured. Patient initially presented with chest tightness as well as multiple musculoskeletal pain complaints. Patient's chest x-ray consistent with pleural effusion and bilateral patchy infiltrates. Patient also has UTI. Patient treated with IV antibiotics. Patient pending CT abdomen pelvis and insurance approval for transfer or admission. Patient signed out to Dr. Crowell at 1400. Laboratory Tests Test 06/15/20 12:47 06/15/20 13:45 White Blood Count 7.2 K/UL (4.8-10.8) Red Blood Count 4.89 M/UL (4.20-5.40) Hemoglobin 12.4 G/DL (12.0-16.0) Hematocrit 40.0 % (37.0-47.0) Mean Corpuscular Volume 82 FL (80-99) Mean Corpuscular Hemoglobin 25.3 PG (27.0-31.0) L Mean Corpuscular Hemoglobin Concent 30.9 G/DL (32.0-36.0) L Red Cell Distribution Width 13.9 % (11.6-14.8) Platelet Count 299 K/UL (150-450) Mean Platelet Volume 8.4 FL (6.5-10.1) Neutrophils (%) (Auto) 66.8 % (45.0-75.0) Lymphocytes (%) (Auto) 19.9 % (20.0-45.0) L Monocytes (%) (Auto) 7.5 % (1.0-10.0) Eosinophils (%) (Auto) 4.3 % (0.0-3.0) H Basophils (%) (Auto) 1.6 % (0.0-2.0) Prothrombin Time 10.5 SEC (9.30-11.50) Prothrombin Time INR 0.9 (0.9-1.1) Activated Partial Thromboplast Time 29 SEC (23-33) D-Dimer 8.13 mg/L FEU (0.00-0.49) H Urine Color Pale yellow Urine Appearance Clear Urine pH 5 (4.5-8.0) Urine Specific [place] 1.015 (1.005-1.035) Urine Protein Negative (NEGATIVE) Urine Glucose (UA) Negative (NEGATIVE) Urine Ketones Negative (NEGATIVE) Urine Blood Negative (NEGATIVE) Urine Nitrite Negative (NEGATIVE) Urine Bilirubin Negative (NEGATIVE) Urine Urobilinogen Normal MG/DL (0.0-1.0) Urine Leukocyte Esterase 3+ (NEGATIVE) H Urine RBC 0-2 /HPF (0 - 2) Urine WBC 10-15 /HPF (0 - 2) H Urine Squamous Epithelial Cells Few /LPF (NONE/OCC) Urine Bacteria Few /HPF (NONE) Sodium Level 141 MMOL/L (136-145) Potassium Level 4.1 MMOL/L (3.5-5.1) Chloride Level 102 MMOL/L (98-107) Carbon Dioxide Level 30 MMOL/L (21-32) Anion Gap 9 mmol/L (5-15) Blood Urea Nitrogen 18 mg/dL (7-18) Creatinine 1.1 MG/DL (0.55-1.30) Estimated Glomerular Filtration Rate 48.7 mL/min (>60) Glucose Level 106 MG/DL (74-106) Calcium Level 10.4 MG/DL (8.5-10.1) H Total Bilirubin 0.5 MG/DL (0.2-1.0) Aspartate Amino Transferase (AST) 87 U/L (15-37) H Alanine Aminotransferase (ALT) 30 U/L (12-78) Alkaline Phosphatase 109 U/L (46-116) Troponin I 0.000 ng/mL (0.000-0.056) Pro-B-Type Natriuretic Peptide 176 pg/mL (0-125) H Total Protein 9.0 G/DL (6.4-8.2) H Albumin 3.7 G/DL (3.4-5.0) Globulin 5.3 g/dL Albumin/Globulin Ratio 0.7 (1.0-2.7) L Lipase 161 U/L (73-393) Urine Opiates Screen Negative (NEGATIVE) Urine Barbiturates Screen Negative (NEGATIVE) Phencyclidine (PCP) Screen Negative (NEGATIVE) Urine Amphetamines Screen Negative (NEGATIVE) Urine Benzodiazepines Screen Negative (NEGATIVE) Urine Cocaine Screen Negative (NEGATIVE) Urine Marijuana (THC) Screen Negative (NEGATIVE) Lactic Acid Level 1.20 mmol/L (0.4-2.0) Microbiology Date/Time Source Procedure Growth Status 06/15/20 13:52 Nasopharynx SARS-CoV-2 RdRp Gene Assay - Final Complete EKG Diagnostic Results EKG Time: 13:05 EP Interpretation: Arcelia Collins MD Rate: normal - 92 bpm Rhythm: NSR ST Segments: no acute changes ASA given to the pt in ED: Yes Rhythm Strip Diag. Results Rhythm Strip Time: 13:11 EP Interpretation: yes - Arcelia Collins MD Rate: 91 bpm Rhythm: NSR, no PVC's, no ectopy Chest X-Ray Diagnostic Results Chest X-Ray Diagnostic Results : Chest X-Ray Ordered: Yes # of Views/Limited/Complete: 1 View Indication: Chest Pain EP Interpretation: Yes Interpretation: no pneumothorax, other - Bilateral patchy consolidations right pleural effusion Impression: Other - Pneumonia and right pleural effusion Electronically Signed by: Arcelia Collins MD Last Vital Signs Date Time Temp Pulse Resp B/P (MAP) Pulse Ox O2 Delivery O2 Flow Rate FiO2 06/15/20 12:33 98.2 101 16 141/83 (102) 97 Room Air Disposition: ADMITTED INPATIENT Condition: Critical Additional Instructions: Please note that this report is being documented using [employer] technology. This can lead to erroneous entry secondary to incorrect interpretation by the dictating instrument. Arcelia Collins M.D. Jun 15, 2020 12:47
--- NOTE | 2020-06-15 12:50 | NUR ---
ED Nurse Note: pt connected to monitor car operator
--- NOTE | 2020-06-15 13:01 | NUR ---
ED Nurse Note: urine and blood sample collected and sent to lab
--- NOTE | 2020-06-15 13:14 | NUR ---
ED Nurse Note: all due medication given at this time. pt tolerated well. will continue to monitor.
[2020-06-15 13:21] LABS: APPEARANCE,URINE CLEAR; BILIRUBIN, URINE NEGATIVE (NEGATIVE); COLOR,URINE PALE YELLOW; GLUCOSE, URINE (UA) NEGATIVE (NEGATIVE); KETONES,URINE NEGATIVE (NEGATIVE); LEUKOCYTE ESTERASE ,URINE 3+ (NEGATIVE); NITRITE,URINE NEGATIVE (NEGATIVE); PH,URINE 5 (4.5-8.0); PROTEIN,URINE NEGATIVE (NEGATIVE); UROBILINOGEN,URINE NORMAL MG/DL (0.0-1.0)
[2020-06-15] MEDS ORDERED: ATORVASTATIN CA20 MG ORAL (13:21)
--- NOTE | 2020-06-15 13:23 | NUR ---
ED Nurse Note: taken to CT via gurrahul in stable condition.
[2020-06-15 13:29] LABS: BASOPHILS % (AUTO) 1.6 % (0.0-2.0); EOSINOPHILS % (AUTO) 4.3 % (0.0-3.0); HEMOGLOBIN 12.4 G/DL (12.0-16.0); LYMPHOCYTES % (AUTO) 19.9 % (20.0-45.0); MEAN CORPUSCULAR VOLUME 82 FL (80-99); MONOCYTES % (AUTO) 7.5 % (1.0-10.0); NEUTROPHILS % (AUTO) 66.8 % (45.0-75.0); PLATELET COUNT 299 K/UL (150-450); RED BLOOD COUNT 4.89 M/UL (4.20-5.40); RED CELL DISTRIBUTION WIDTH 13.9 % (11.6-14.8); WHITE BLOOD COUNT 7.2 K/UL (4.8-10.8)
[2020-06-15 13:32] LABS: INR 0.9 (0.9-1.1)
[2020-06-15 13:37] LABS: ANION GAP 9 mmol/L (5-15); BLOOD UREA NITROGEN 18 mg/dL (7-18); CALCIUM 10.4 MG/DL (8.5-10.1); CARBON DIOXIDE 30 MMOL/L (21-32); CHLORIDE 102 MMOL/L (98-107); CREATININE 1.1 MG/DL (0.55-1.30); POTASSIUM 4.1 MMOL/L (3.5-5.1); SODIUM 141 MMOL/L (136-145)
[2020-06-15] MEDS ORDERED: cefTRIAXone 1 GM in NS 55 ML IVPB ONE (13:45)
[2020-06-15] MEDS ORDERED: Azithromycin 500 MG in D5W 275 ML IVPB ONE (13:45)
[2020-06-15 13:47] LABS: ALANINE AMINOTRANSFERASE 30 U/L (12-78); ALBUMIN 3.7 G/DL (3.4-5.0); ALBUMIN/GLOBULIN RATIO 0.7 (1.0-2.7); ALKALINE PHOSPHATASE 109 U/L (46-116); ASPARTATE AMINO TRANSFERASE 87 U/L (15-37); BILIRUBIN,TOTAL 0.5 MG/DL (0.2-1.0)
--- NOTE | 2020-06-15 13:54 | NUR ---
ED Nurse Note: Collected blood cultures, lactic acid and covid19 swab then sent.
[2020-06-15 14:33] VITALS: BP 153/80
--- NOTE | 2020-06-15 14:46 | Diagnostic Imaging Report ---
EXAM: XR Chest, 1 View CLINICAL HISTORY: PAIN TECHNIQUE: Frontal view of the chest. COMPARISON: Chest radiograph on 02/28/2020 FINDINGS: Hardware: None. Lungs/pleura: Right pleural effusion. Patchy consolidations in the mid and lower lung may represent atelectasis and/or pneumonia. Heart/mediastinum: Normal. No cardiomegaly. Soft tissues: Unremarkable. Bones: No acute fracture. Degenerative changes of the acromioclavicular joints and spine. Upper abdomen: Normal. IMPRESSION: Right pleural effusion. Patchy consolidations in the mid and lower lung may represent atelectasis and/or pneumonia.
--- NOTE | 2020-06-15 14:53 | Diagnostic Imaging Report ---
EXAM: CT Abdomen and Pelvis Without Intravenous Contrast CLINICAL HISTORY: PAIN TECHNIQUE: Axial computed tomography images of the abdomen and pelvis without intravenous contrast. CTDI is 4.9 mGy and DLP is 255 mGy-cm. One or more of the following dose reduction techniques were used: automated exposure control, adjustment of the mA and/or kV according to patient size, use of iterative reconstruction technique. COMPARISON: None FINDINGS: Lung bases: Multiple nodules in the visualized right lower lung, measuring up to 9 mm. Other smaller nodules in the left lower lobe, measuring up to approximately 5 mm. This is concerning for metastatic disease. Atelectasis in the right lung. Pleural space: Right-sided nodular pleural thickening, concerning for neoplasm/metastasis. ABDOMEN: Liver: Unremarkable. Gallbladder and bile ducts: Unremarkable. No calcified stones. No ductal dilation. Pancreas: Unremarkable. No ductal dilation. Spleen: Unremarkable. No splenomegaly. Adrenals: Nonspecific thickening of the adrenal glands which could represent metastases. Kidneys and ureters: No hydronephrosis. 7 mm calcification adjacent to the right ureter likely represents a phlebolith adjacent to the ureter. Stomach and bowel: Diverticulosis without evidence of diverticulitis. No bowel obstruction. PELVIS: Appendix: Normal appendix. Bladder: Mild prominence of the bladder wall may be secondary to decompression. Please correlate with urinalysis if concerned for cystitis. No stones. Reproductive: Calcified uterine fibroids. Calcifications in the right adnexa. ABDOMEN and PELVIS: Intraperitoneal space: Small amount of fluid in the posterior pelvis. No free air. Bones/joints: Degenerative changes of the spine. Age indeterminate but likely chronic mild superior endplate depression in the L1 vertebral body. No acute fracture. No dislocation. Soft tissues: Small fat-containing umbilical hernia. Vasculature: Atherosclerotic changes of the vasculature. No aortic aneurysm. Lymph nodes: Unremarkable. No enlarged lymph nodes. IMPRESSION: 1. Right-sided nodular pleural thickening, concerning for neoplasm/metastasis. 2. Multiple nodules in the visualized right lower lung, measuring up to 9 mm. Other smaller nodules in the left lower lobe, measuring up to approximately 5 mm. This is concerning for metastatic disease. 3. Nonspecific thickening of the adrenal glands which could represent metastases. This is increased compared to CT chest on 02/28/2020. 4. No hydronephrosis. 7 mm calcification adjacent to the right ureter likely represents a phlebolith adjacent to the ureter rather than a ureter stone. 5. Mild prominence of the bladder wall may be secondary to decompression. Please correlate with urinalysis if concerned for cystitis.
[2020-06-15 16:32] VITALS: BP 159/85
--- NOTE | 2020-06-15 18:23 | NUR ---
ED Nurse Note: Report given to emma STEARNS of telemetry.
--- NOTE | 2020-06-15 18:24 | NUR ---
ED Nurse Note: Notified Dr Crowell of D-dimer 8.13 with no new orders given at this time.
--- NOTE | 2020-06-15 18:53 | NUR ---
NURSE NOTES: Pt arrived in telemetry. Received report from DARYN Rea. Pt A/O x4, ambulatory, able to express needs. Telemonitor attached to the pt, VS checked (97.7 oral temp, HR 88, RR 20, BP 153/85, O2 sat 96% in RA). Pt denies any pain at the moment. Bed on lowest position, call light within reach. Will endorse to NOC nurse to get admission orders.
--- NOTE | 2020-06-15 19:12 | NUR ---
NURSE HAND-OFF REPORT: Important Events on Shift: New Admit Patient Status: pending Diet: pending Pending Orders: Pending Results/Labs: Pending MD notification: Latest Vital Signs: Temperature 97.7 , Pulse 88 , B/P 153/85 , Respiratory Rate 20 , O2 SAT 96 , Room Air, O2 Flow Rate . Vital Sign Comment: EKG Rhythm: NSR Rhythm change?: MD Notified?: - MD Response: Latest Vera Fall Score: 20 Fall Risk: Safety Measures: Call light , Bed Alarm , Side Rails , Bed position . Fall Precautions: Report given to DARYN [place].
--- NOTE | 2020-06-15 19:15 | NUR ---
NURSE NOTES: RECEIVED REPORT FROM DARYN SANTORO. AAOX4, VERBALLY RESPONSIVE AND ABLE TO MAKE NEEDS KNOWN. BREATHING EVEN AND UNLABORED ON ROOM AIR, NO S/SX OF DISTRESS AT THIS TIME. NO COMPLAINTS OF PAIN OR DISCOMFORT AT THIS TIME. IV SITE ON LEFT WRIST PATENT, INTACT, ASYMPTOMATIC, AND SALINE-LOCKED. FALL PRECAUTIONS IN PLACE. BED LOCKED AND IN LOWEST POSITION, SIDERAILS UP X 2. CALL LIGHT WITHIN REACH. WILL CONTINUE TO MONITOR FOR ANY CHANGES.
--- NOTE | 2020-06-15 19:44 | NUR ---
NURSE NOTES: LEFT VOICEMAIL FOR DR. BRUCE AT [phone] FOR ADMISSION ORDERS. AWAITING FOR CALL BACK.
[2020-06-15 20:00] VITALS: BP 149/82
--- NOTE | 2020-06-15 20:15 | NUR ---
NURSE NOTES: RECEIVED CALL BACK FROM DR. BRUCE. ORDERS NOTED AND CARRIED OUT. Addendum: 06/15/20 at 2020 by Miroslava Ruth RN INFORMED DR. BRUCE ABOUT ELEVATED D-DIMER AND PRESENCE OF LEUKOCYTES IN URINE. NO NEW ORDERS.
[2020-06-15] MEDS: Levemir Flexpen SUBQ SCH (21:00)
[2020-06-15] MEDS: NovoLOG Insulin Flexpen SUBQ SCH (21:00)
[2020-06-15] MEDS: HydrALAZINE 25mg tab ORAL SCH (21:18)
[2020-06-15] MEDS: Heparin 5000 units/ml inj SUBQ SCH (21:35)
--- NOTE | 2020-06-15 21:45 | NUR ---
NURSE NOTES: BS CHECKED AT BEDTIME; 79. GIVEN JUICE AND CRACKERS- BS AFTER 30 MINUTES IS 96.
[2020-06-16] VITALS: BP 153/88
[2020-06-16 04:00] VITALS: BP 145/87
[2020-06-16] MEDS: NovoLOG Insulin Flexpen SUBQ SCH ×4 (06:30→20:43)
[2020-06-16] MEDS: Nateglinide 60mg tab ORAL SCH ×3 (06:41→16:30)
--- NOTE | 2020-06-16 07:26 | NUR ---
NURSE HAND-OFF REPORT: Important Events on Shift: NEW ADMIT Patient Status: STABLE Diet: CCHO MEDIUM, REGULAR CONSISTENCY Pending Orders: N/A Pending Results/Labs: TROPONIN Pending MD notification: N/A Latest Vital Signs: Temperature 97.9 , Pulse 81 , B/P 145 /87 , Respiratory Rate 18 , O2 SAT 96 , Room Air, O2 Flow Rate . Vital Sign Comment: STABLE EKG Rhythm: Sinus Rhythm Rhythm change?: N MD Notified?: - MD Response: Latest Vera Fall Score: 35 Fall Risk: Medium Risk Safety Measures: Call light Within Reach, Bed Alarm , Side Rails Side Rails x2, Bed position Low and Locked. Fall Precautions: Yellow Socks Yellow Gown Door Sign Patient Fall Education Report given to DARYN HUITRON.
[2020-06-16 08:00] VITALS: BP 132/78
--- NOTE | 2020-06-16 08:02 | NUR ---
NURSES NOTE Received report from DARYN [place]. PT is A/O x 4 and sitting in the bed. Pt is on RA and SATing well. No pain noted. Pt is continent of B/B and ambulates to the bathroom. Bed is lowest position and locked. galvanometer assembler in place and showing SR.
[2020-06-16] MEDS: Aspirin EC 81mg tab ORAL SCH (08:47)
[2020-06-16] MEDS: Heparin 5000 units/ml inj SUBQ SCH ×2 (08:48→20:54)
[2020-06-16] MEDS: HydrALAZINE 25mg tab ORAL SCH ×3 (08:48→20:52)
--- NOTE | 2020-06-16 09:39 | NUR ---
CASE MANAGEMENT:INITIAL REVIEW 74YR OLD FEMALE FROM HOME CC:BACK PAIN NO INJURY; CHEST TIGHTNESS X3 DAYS SI: PNA . UTI . CHEST PAIN 98.3 101 16 141/83 97% ON RA D-DIMER 8.13 CA+ 10.4 BNP 176 IS:IVF NS BOLUS X1 IV ZITHROMAX X1 IV ROCEPHIN X1 ASA PO X1 IV FENTANYL X1 CHEST X-RAY- Right pleural effusion. Patchy consolidations in the mid and lower lung may represent atelectasis and/or pneumonia. CT ABD/PEL WO [id number]-[id number] nodular pleural thickening, concerning for neoplasm/metastasis.Multiple nodules in the visualized right lower lung, measuring up to 9 mm. Other smaller nodules in the left lower lobe, measuring up to approximately 5 mm. This is concerning for metastatic disease.Nonspecific thickening of the adrenal glands which could represent metastases. This is increased compared to CT chest on 02/28/2020. No hydronephrosis. 7 mm calcification adjacent to the right ureter likely represents a phlebolith adjacent to the ureter rather than a ureter stone. Mild prominence of the bladder wall may be secondary to decompression.Please correlate with urinalysis if concerned for cystitis. BLOOD CX- URINE CX- [id number] \:2E TELE UNIT DCP: HOME WHEN STABLE CASE MANAGEMENT:REVIEW 06/16/20 SI: PNA . UTI . CHEST PAIN 98.3 101 16 141/83 97% ON RA D-DIMER 8.13 CA+ 10.4 BNP 176 IS:HEPARIN SQ BID HYDRALAZINE PO BID STARLIX PO TIAC ASPIRIN PO QD JANUVIA PO QAC LIPITOR PO QHS \:2E TELE UNIT DCP: HOME WHEN STABLE; F/U ON TRANSFER TO [facility] WEDNESDAY [place]: CHECK TROPONIN QD F/U WITH BLOOD CX & URINE CX Addendum: 06/16/20 at 0956 by CIERRA ROSS LVN CASE MANAGEMENT:REVIEW EDIT 06/16/20 SI: CHAD SKELTON . CHEST PAIN 97.6 81 21 132/78 96% ON RA HA1C 6.5 Addendum: 06/16/20 at 1631 by CIERRA ROSS LVN NO ECG CHANGE
[2020-06-16] MEDS ORDERED: HYDROcodone/Acetamin 5/325 tab ORAL PRN (11:00)
[2020-06-16 12:00] VITALS: BP 122/76
--- NOTE | 2020-06-16 12:15 | History and Physical Report ---
DATE OF ADMISSION: 06/15/2020 HISTORY OF PRESENT ILLNESS: This is a 74-year-old female with a history of diabetes mellitus, hypertension, who came to the hospital with complaints of right hip and midback pain as well as right arm pain. The patient states she has been having this for several days. She does report nonspecific chest tightness. The patient denies being a smoker. She reports she has a history of breast cancer and she underwent lumpectomy in 2017 or 2018 this is followed by both chemo and radiation. She states she used to see a doctor, who was an oncologist, however, he is no longer practicing and she is now seeing a primary care physician only. PAST MEDICAL HISTORY: Notable for breast cancer, diagnosed several years ago, status post lumpectomy, radiation and chemo. She also has history of hypertension and diabetes mellitus. MEDICATIONS: The patient's list of home medications includes aspirin, Lipitor, hydralazine, Levemir, Starlix, Januvia. REVIEW OF SYSTEMS: Denies any headaches, hematemesis, melena, hematochezia, night sweats, or weight loss. SOCIAL HISTORY: Denies alcohol or tobacco usage. ALLERGIES: None reported. CODE STATUS: Full. PHYSICAL EXAMINATION: GENERAL: Reveals a 74-year-old female. VITAL SIGNS: Blood pressure 130/70, heart rate 84, respirations 20, she is afebrile, O2 saturation 96% on room air. HEENT: Unremarkable. CHEST: Clear breath sounds bilaterally. ABDOMEN: Soft. EXTREMITIES: There is no edema. NEUROLOGIC: Nonfocal. LABORATORY AND DIAGNOSTIC DATA: Lab testing shows normal CBC. Calcium is borderline high at 10.4. Albumin is 3.7. Hemoglobin A1c is 6.5. Toxicology is negative. Coags are negative except for D-dimer of 8.1. Urinalysis negative. Imaging studies are reviewed. The patient underwent an abdomen and pelvis CT, which shows multiple nodules in the right lower lung field as well as lower lung field. The patient underwent chest x-ray, which shows small right effusion. I have reviewed her previous admission, which was in February 2020. At that time, I had noted that the patient was found to have metastatic carcinoma. She underwent a thoracentesis, which showed metastatic carcinoma, most likely breast origin. At that time, she was discharged. IMPRESSION: 1. Metastatic carcinoma. 2. History of breast CA. 3. Hypertension. 4. . DISCUSSION: We will admit to the hospital. We will order a bone scan, although I doubt we will discuss with Oncology. The patient will benefit from ongoing chemotherapy with the primary care physician. We will initiate pain management with [place] [place]. We will follow. Harshil Fam M.D. DR: SARANYA JOB#: [id number] CC:
--- NOTE | 2020-06-16 12:18 | Consultation ---
Consult Note Consult Note I am asked to evaluate the patient at the request Marzena Fam for hypercalcemia Pleasant elderly lady Patient had 2 previous admissions here at [facility] Chief Complaint: Back Pain-No Injury Patient is a 74-year-old female past medical history of chronic pain, diabetes and hypertension who presents the ER with multiple complaints. Patient complains of right hip pain and mid back pain that has been present for the past 3 days. She states that she just woke up with it. She also complains of chest tightness over the past 3 days. She denies any shortness of breath. She denies any fever or chills. She denies any nausea or vomiting. She denies any focal weakness. She denies any trauma. She denies any history of osteoporosis. Patient is ambulating without difficulty. Patient states that she took [place] for her pain which helped. Patient denies any history of smoking or recent travel. She states that she does spend a lot of time in bed. Allergies: No Known Allergies (Unverified , 11/07/19) COVID-19 Screening Contact w/high risk pt: No Recent Travel to affected area: No Experienced COVID-19 symptoms?: No COVID-19 Testing performed COMMUNICATIONS COORDINATOR: Yes - 03/02 COVID-19 Screening: Negative COVID-19 COVID-19 Testing Source: [employer] Past Medical History: No History, Except For Hx Cardiac Problems: Yes Hx Hypertension: Yes Hx Diabetes: Yes Hx Cancer: Yes - breast Metastatic breast cancer Malignant pleural effusion Diabetes mellitus [id number] Previously acute kidney injury due to dehydration- resolved Previously hypernatremia due to dehydration -resolved Hypertension Vital Signs Date Time Temp Pulse Resp B/P (MAP) Pulse Ox O2 Delivery O2 Flow Rate FiO2 06/15/20 12:33 98.2 101 16 141/83 (102) 97 Room Air Sp02 EP Interpretation: reviewed, normal PHYSICAL EXAMINATION: GENERAL: Well developed, no acute distress. VITAL SIGNS: Blood pressure 153/80, pulse 87, respiratory rate 16, afebrile, room air oxygen 99%. HEENT: Conjunctivae pink. NECK: Jugular venous pressure normal. LUNGS: No accessory muscle use. With few rhonchi and diminished breath sounds at the right. CARDIAC: Regular rhythm and rate. Normal S1, S2 with a fourth heart sound. ABDOMEN: Soft, nontender. No hepatomegaly. EXTREMITIES: No calf tenderness or edema. LABORATORY DATA: White count 7.2, hemoglobin 12.4. Troponin negative. Lactic acid 1.2. Sodium 141, potassium 4.1, bicarb 30, BUN 18, creatinine 1.1. D-dimer is 8.5. Calcium 10.4. Albumin 3.7. Pro natriuretic peptide 176. Assessment/Plan Mild hypercalcemia most likely secondary to metastatic disease and or partly dehydration UTI Pneumonia Diabetes mellitus Metastatic breast cancer with malignant pleural effusion Suggestions: At this time we start the patient on nasal calcitonin We will check calcium and phosphorus magnesium TSH alkaline phosphatase tomorrow According to what the blood results are and how the patient's condition evolves I will make the appropriate changes in my future management. Thank you IMPRESSION: 1. Right-sided nodular pleural thickening, concerning for neoplasm/metastasis. 2. Multiple nodules in the visualized right lower lung, measuring up to 9 mm. Other smaller nodules in the left lower lobe, measuring up to approximately 5 mm. This is concerning for metastatic disease. 3. Nonspecific thickening of the adrenal glands which could represent metastases. This is increased compared to CT chest on 02/28/2020. 4. No hydronephrosis. 7 mm calcification adjacent to the right ureter likely represents a phlebolith adjacent to the ureter rather than a ureter stone. 5. Mild prominence of the bladder wall may be secondary to decompression. Please correlate with urinalysis if concerned for cystitis. I spent an additional 36 minutes on review of medical records including prior hospital records,consult notes, progress notes, procedures ,imaging labs, hemodynamics, and other clinical documentation. Over 35 min Marques Haines MD Jun 16, 2020 12:18
[2020-06-16] MEDS: Docusate 100mg cap ORAL SCH ×2 (13:07→17:37)
[2020-06-16 16:00] VITALS: BP 156/93
--- NOTE | 2020-06-16 16:15 | NUR ---
*-* INSURANCE *-* UPDATED CLINICALS AND REVIEWS HAVE BEEN FAXED TO: [employer] [facility] FAX: [phone] TEL: [phone] Addendum: 06/17/20 at 1518 by HANY DIMAS INSURANCE HCP/[employer] REF# [id number] PH: [phone] [employer] 1 FX: [phone]
[2020-06-16] MEDS ORDERED: Omnipaque 350 100ml vial INJ PRN (17:00)
--- NOTE | 2020-06-16 19:03 | NUR ---
NURSE HAND-OFF REPORT: Important Events on Shift: None Patient Status: Good Diet: CCHO Med Pending Orders: None Pending Results/Labs:CT with contrast tomorrow. Consent signed. Pending MD notification: Latest Vital Signs: Temperature 96.8 , Pulse 89 , B/P 156 /93 , Respiratory Rate 18 , O2 SAT 97 , Room Air, O2 Flow Rate . Vital Sign Comment: EKG Rhythm: Sinus Rhythm Rhythm change?: N MD Notified?: - MD Response: Latest Vera Fall Score: 35 Fall Risk: Medium Risk Safety Measures: Call light Within Reach, Bed Alarm , Side Rails Side Rails x2, Bed position Low and Locked. Fall Precautions: Yellow Socks Yellow Gown Door Sign Patient Fall Education Report given to
--- NOTE | 2020-06-16 19:23 | NUR ---
NURSE NOTES: Patient received from Jaimie STEARNS. Patient in stable condition. Alert and oriented x4. No s/s of distress. Saturating well on Room air. IV site patent and intact on Left wrist 20G with NS running @ 100mls/hr. Bed is low and locked. Call light and bedside table within reach. Will continue plan of care.
[2020-06-16 20:00] VITALS: BP 148/82
[2020-06-16] MEDS: Levemir Flexpen SUBQ SCH (20:57)
--- NOTE | 2020-06-16 21:00 | NUR ---
NURSE NOTES: Patient's blood sugar was 123 with patient not eating much gave half the dose of scheduled order of 24units of Levemir at 12Units.
--- NOTE | 2020-06-16 23:45 | NUR ---
NURSE NOTES: Patient's blood pressure was 177/[address] Heath for PRN HTN medication. Awaiting call back
[2020-06-17] VITALS: BP 177/96
--- NOTE | 2020-06-17 | NUR ---
NURSE NOTES: Rechecked patient's blood pressure 155/88
--- NOTE | 2020-06-17 00:45 | NUR ---
NURSE NOTES: Received order for Amlodipine 5mg Daily start now.
--- NOTE | 2020-06-17 00:56 | Cardiology Progress Note ---
Subjective DATE OF SERVICE: Jun 16, 2020 C/O right arm and rib discomfort - especially with a deep breath. No SOB. BP range increasing Objective Last 24 Hour Vital Signs Date Time Temp Pulse Resp B/P (MAP) Pulse Ox O2 Delivery O2 Flow Rate FiO2 06/17/20 00:00 91 06/17/20 00:00 98.5 91 18 177/96 (123) 96 06/16/20 21:00 Room Air 06/16/20 20:52 148/82 06/16/20 20:00 98.6 94 18 148/82 (104) 96 06/16/20 20:00 91 06/16/20 16:00 96.8 89 18 156/93 (114) 97 06/16/20 15:31 86 06/16/20 13:38 137/70 06/16/20 12:00 98.7 81 21 122/76 (91) 96 06/16/20 11:34 87 06/16/20 09:00 Room Air 06/16/20 08:48 132/78 06/16/20 08:00 97.6 81 21 132/78 (96) 96 06/16/20 08:00 93 06/16/20 04:00 97.9 81 18 145/87 (106) 96 06/16/20 04:00 79 HEENT: normal ENT inspection RHYTHM: NSR LUNGS: right-sided rhonchi, other - diminished right base CARDIAC: normal rate, regular rhythm, normal S1 and S2, irregularly irregular ABDOMEN: normal bowel sounds, non tender, soft, no organomegaly EXTREMITIES: No edema Laboratory Tests Test 06/16/20 06:42 06/16/20 17:04 06/16/20 17:26 Hemoglobin A1c 6.5 % (4.3-6.0) H POC Whole Blood Glucose 101 MG/DL (74-106) Troponin I 0.000 ng/mL (0.000-0.056) Microbiology Date/Time Source Procedure Growth Status 06/15/20 13:52 Nasopharynx SARS-CoV-2 RdRp Gene Assay - Final Complete 06/15/20 12:47 Urine,Clean Catch Urine Culture - Preliminary NO GROWTH Resulted DDimers elevated CHEST XRAY: Rt pleural eff'n Assessment/Plan Assessment/Plan Pleuritic Chest Pain Metastatic breast CA Right pleural eff'n HypertensionHHD with elev BP range. NIDDM Hypercalcemia Elevated DDimers with increased risk for Pulmonary emboli AntiHTn rx advanced Analgesics Check CT angio of chest DVT prophylaxis IVF hydration in anticip of angio Artem Heath MD Jun 17, 2020 00:56
--- NOTE | 2020-06-17 02:15 | Consultation ---
DATE OF CONSULTATION: 06/17/2020 CARDIOLOGY CONSULTATION CONSULTING PHYSICIAN: Artem Heath MD. REQUESTING PHYSICIAN: Harshil Fam MD. REASON FOR CONSULTATION: Chest pain. HISTORY OF PRESENT ILLNESS: This is a 74-year-old female with metastatic breast cancer. She presented to the hospital complaining of increasing back right rib and right arm discomfort. She has not had any chest tightness or shortness of breath. Her initial troponin level was negative. PAST MEDICAL HISTORY: Breast cancer, status post lumpectomy with chemo and radiation, hypertension, type 2 diabetes mellitus, hyperlipidemia. ALLERGIES: None. MEDICATIONS: Reviewed and reconciled. FAMILY HISTORY: Noncontributory. SOCIAL HISTORY: Negative for smoking, alcohol, or substance abuse. REVIEW OF SYSTEMS: No fevers or chills. No cough. No leg swelling. No prior history of heart attack. No known COVID-19 exposures, on anti-lipid therapy, but cholesterol parameters none known. No known history of thyroid impairment. No known history of seizure or stroke. The patient does not have any history of hypercoagulable state or blood clotting. PHYSICAL EXAMINATION: GENERAL: Well developed, no acute distress. VITAL SIGNS: Blood pressure 153/80, pulse 87, respiratory rate 16, afebrile, room air oxygen 99%. HEENT: Conjunctivae pink. NECK: Jugular venous pressure normal. LUNGS: No accessory muscle use. With few rhonchi and diminished breath sounds at the right. CARDIAC: Regular rhythm and rate. Normal S1, S2 with a fourth heart sound. ABDOMEN: Soft, nontender. No hepatomegaly. EXTREMITIES: No calf tenderness or edema. LABORATORY DATA: White count 7.2, hemoglobin 12.4. Troponin negative. Lactic acid 1.2. Sodium 141, potassium 4.1, bicarb 30, BUN 18, creatinine 1.1. D-dimer is 8.5. Calcium 10.4. Albumin 3.7. Pro natriuretic peptide 176. IMPRESSION: 1. Pleuritic chest pain. 2. Right pleural effusion. 3. Metastatic breast cancer. 4. Hypertensive heart disease. 5. Hypercalcemia. 6. Elevated D-dimers in the setting of metastatic carcinoma raises concern of pulmonary embolic event. PLAN: 1. Cardiac monitoring. 2. Consider CT angiogram of the chest. 3. Followup troponin level. 4. Optimize antihypertensive therapy. 5. Insulin coverage by sliding scale. 6. Hydration and monitoring of calcium levels. 7. DVT prophylaxis with consideration for full anticoagulation to follow. Artem Heath M.D. DR: MADDIE JOB#: [id number] CC:
[2020-06-17 04:00] VITALS: BP 143/88
[2020-06-17] MEDS: Nateglinide 60mg tab ORAL SCH ×2 (05:27→11:52)
[2020-06-17] MEDS: HydrALAZINE 25mg tab ORAL SCH (05:27)
[2020-06-17] MEDS: NovoLOG Insulin Flexpen SUBQ SCH ×2 (06:14→11:30)
[2020-06-17 07:12] LABS: BASOPHILS % (AUTO) 1.4 % (0.0-2.0); EOSINOPHILS % (AUTO) 4.4 % (0.0-3.0); HEMATOCRIT 35.2 % (37.0-47.0); LYMPHOCYTES % (AUTO) 21.2 % (20.0-45.0); MEAN CORPUSCULAR VOLUME 82 FL (80-99); MONOCYTES % (AUTO) 5.6 % (1.0-10.0); NEUTROPHILS % (AUTO) 67.5 % (45.0-75.0); PLATELET COUNT 259 K/UL (150-450); RED BLOOD COUNT 4.31 M/UL (4.20-5.40); RED CELL DISTRIBUTION WIDTH 14.2 % (11.6-14.8); WHITE BLOOD COUNT 6.7 K/UL (4.8-10.8)
--- NOTE | 2020-06-17 07:44 | NUR ---
NURSE HAND-OFF REPORT: Important Events on Shift:[Not voided since bañuelos catheter removed.] Patient Status: [Stable] Diet: [CCHO MED] Pending Orders: [] Pending Results/Labs:[] Pending MD notification:[] Latest Vital Signs: Temperature 98.3 , Pulse 88 , B/P 143 /88 , Respiratory Rate 18 , O2 SAT 96 , Room Air, O2 Flow Rate . Vital Sign Comment: [] EKG Rhythm: Sinus Rhythm Rhythm change?: N MD Notified?: - MD Response: Latest Vera Fall Score: 35 Fall Risk: Medium Risk Safety Measures: Call light Within Reach, Bed Alarm , Side Rails Side Rails x2, Bed position Low and Locked. Fall Precautions: Yellow Socks Yellow Gown Door Sign Patient Fall Education Report given to [LUIS MIGUEL]. Addendum: 06/17/20 at 0748 by Nicole Daigle RN WRONG PATIENT
--- NOTE | 2020-06-17 07:49 | NUR ---
NURSE HAND-OFF REPORT: Important Events on Shift:[Elevated BP at midnight. MD aware.] Patient Status: [Stable] Diet: [CCHO MED] Pending Orders: [] Pending Results/Labs:[] Pending MD notification:[] Latest Vital Signs: Temperature 98.3 , Pulse 88 , B/P 143 /88 , Respiratory Rate 18 , O2 SAT 96 , Room Air, O2 Flow Rate . Vital Sign Comment: [] EKG Rhythm: Sinus Rhythm Rhythm change?: N MD Notified?: - MD Response: Latest Vera Fall Score: 35 Fall Risk: Medium Risk Safety Measures: Call light Within Reach, Bed Alarm , Side Rails Side Rails x2, Bed position Low and Locked. Fall Precautions: Yellow Socks Yellow Gown Door Sign Patient Fall Education Report given to [LUIS MIGUEL RN].
--- NOTE | 2020-06-17 07:57 | NUR ---
NURSE NOTES: Received patient in bed awake. No SOB or acute distress. IV line intact. HOB elevated. Bed locked in lowest position. Call light within reach. Will continue plan of care.
[2020-06-17 08:00] VITALS: BP 128/78
[2020-06-17 08:01] LABS: ALANINE AMINOTRANSFERASE 27 U/L (12-78); ALBUMIN 3.1 G/DL (3.4-5.0); ALBUMIN/GLOBULIN RATIO 0.6 (1.0-2.7); ALKALINE PHOSPHATASE 95 U/L (46-116); ANION GAP 9 mmol/L (5-15); ASPARTATE AMINO TRANSFERASE 87 U/L (15-37); BILIRUBIN,TOTAL 0.6 MG/DL (0.2-1.0); BLOOD UREA NITROGEN 12 mg/dL (7-18); CALCIUM 9.4 MG/DL (8.5-10.1); CARBON DIOXIDE 27 MMOL/L (21-32); CHLORIDE 107 MMOL/L (98-107); CHOLESTEROL 141 MG/DL (< 200); HDL CHOLESTEROL 55 MG/DL (40-60); PHOSPHORUS 4.3 MG/DL (2.5-4.9); POTASSIUM 3.9 MMOL/L (3.5-5.1); SODIUM 143 MMOL/L (136-145); TRIGLYCERIDES 70 MG/DL (30-150)
[2020-06-17] MEDS: Docusate 100mg cap ORAL SCH (08:26)
[2020-06-17] MEDS: Aspirin EC 81mg tab ORAL SCH (08:26)
[2020-06-17] MEDS: Heparin 5000 units/ml inj SUBQ SCH (08:27)
--- NOTE | 2020-06-17 10:03 | NUR ---
NURSE NOTES: Another IV line g20 inserted to [facility] for CTA of chest, transported down for procedure. Consent for IV contrast secured in chart.
--- NOTE | 2020-06-17 10:51 | Pulmonology Progress Note ---
Subjective Interval Events: None new Constitutional: Reports: no symptoms HEENT: Repors: no symptoms Respiratory: Reports: no symptoms Cardiovascular: Reports: no symptoms Allergies: Coded Allergies: No Known Allergies (Unverified , 11/07/19) Objective Last 24 Hour Vital Signs Date Time Temp Pulse Resp B/P (MAP) Pulse Ox O2 Delivery O2 Flow Rate FiO2 06/17/20 09:00 Room Air 06/17/20 08:26 87 128/78 06/17/20 08:00 90 06/17/20 08:00 98.7 87 18 128/78 (95) 96 06/17/20 05:27 143/88 06/17/20 04:00 92 06/17/20 04:00 98.3 88 18 143/88 (106) 96 06/17/20 00:52 91 177/96 06/17/20 00:00 91 06/17/20 00:00 98.5 91 18 177/96 (123) 96 06/16/20 21:00 Room Air 06/16/20 20:52 148/82 06/16/20 20:00 98.6 94 18 148/82 (104) 96 06/16/20 20:00 91 06/16/20 16:00 96.8 89 18 156/93 (114) 97 06/16/20 15:31 86 06/16/20 13:38 137/70 06/16/20 12:00 98.7 81 21 122/76 (91) 96 06/16/20 11:34 87 Intake and Output 06/16/20 06/17/20 19:00 07:00 Intake Total 360 ml Balance 360 ml Intake Oral 360 ml # Voids 4 2 General Appearance: no acute distress Respiratory: chest wall non-tender Cardiovascular: normal peripheral pulses Abdomen: normal bowel sounds Microbiology Date/Time Source Procedure Growth Status 06/15/20 13:58 Blood Blood Culture - Preliminary NO GROWTH AFTER 24 HOURS Resulted 06/15/20 13:45 Blood Blood Culture - Preliminary NO GROWTH AFTER 24 HOURS Resulted 06/15/20 13:52 Nasopharynx SARS-CoV-2 RdRp Gene Assay - Final Complete 06/15/20 12:47 Urine,Clean Catch Urine Culture - Preliminary Mixed Gram Positive Organism Resulted Laboratory Tests 06/16/20 17:04: POC Whole Blood Glucose 101 06/16/20 17:26: Troponin I 0.000 06/17/20 05:44: Troponin I 0.000, White Blood Count 6.7, Red Blood Count 4.31, Hemoglobin 11.0L , Hematocrit 35.2L, Mean Corpuscular Volume 82, Mean Corpuscular Hemoglobin 25.5L, Mean Corpuscular Hemoglobin Concent 31.2L, Red Cell Distribution Width 14.2, Platelet Count 259, Mean Platelet Volume 7.5, Neutrophils (%) (Auto) 67.5 , Lymphocytes (%) (Auto) 21.2, Monocytes (%) (Auto) 5.6, Eosinophils (%) (Auto) 4.4H, Basophils (%) (Auto) 1.4, Sodium Level 143, Potassium Level 3.9, Chloride Level 107, Carbon Dioxide Level 27, Anion Gap 9, Blood Urea Nitrogen 12, Creatinine 1.0, Estimat Glomerular Filtration Rate 54.3, Glucose Level 69L, Uric Acid 7.0, Calcium Level 9.4, Phosphorus Level 4.3, Magnesium Level 2.5H, Total Bilirubin 0.6, Aspartate Amino Transf (AST/SGOT) 87H, Alanine Aminotransferase (ALT/SGPT) 27, Alkaline Phosphatase 95, C-Reactive Protein, Quantitative 4.0H, Pro-B-Type Natriuretic Peptide 127H, Total Protein 7.9, Albumin 3.1L, Globulin 4.8, Albumin/Globulin Ratio 0.6L, Triglycerides Level 70 , Cholesterol Level 141, LDL Cholesterol 72, HDL Cholesterol 55, Cholesterol/ HDL Ratio 2.6L, Thyroid Stimulating Hormone (TSH) 3.611 Current Medications Medications (Trade) Dose Ordered Sig/Lizandro Route PRN Reason Start Time Stop Time Status Last Admin Dose Admin Acetaminophen (Tylenol) 650 mg Q6H PRN ORAL Mild Pain (Pain Scale 1-3) 06/16/20 00:45 07/16/20 00:44 06/16/20 23:30 Acetaminophen/ Hydrocodone Bitart ([place] 5/325) 1 tab Q4H PRN ORAL Moderate Pain (Pain Scale 4-6) 06/16/20 11:00 06/23/20 10:59 Amlodipine Besylate (Norvasc) 5 mg DAILY ORAL 06/17/20 00:45 07/17/20 00:44 06/17/20 08:26 Aspirin (Ecotrin) 81 mg DAILY ORAL 06/16/20 09:00 07/31/20 08:59 06/17/20 08:26 Atorvastatin Calcium (Lipitor) 20 mg BEDTIME ORAL 06/15/20 21:00 09/13/20 20:59 06/16/20 20:52 Calcitonin [place] (Miacalcin) 1 sprays DAILY NASAL 06/16/20 13:00 09/14/20 12:59 06/17/20 08:25 Dextrose (Dextrose 50%) 25 ml Q30M PRN IV Hypoglycemia 06/15/20 20:15 09/13/20 20:14 Dextrose (Dextrose 50%) 50 ml Q30M PRN IV Hypoglycemia 06/15/20 20:15 09/13/20 20:14 Docusate Sodium (Colace) 100 mg THREE TIMES A DAY ORAL 06/16/20 13:00 07/16/20 12:59 06/17/20 08:26 Heparin Sodium (Porcine) (Heparin 5000 units/ml) 5,000 units EVERY 12 HOURS SUBQ 06/15/20 21:00 07/30/20 20:59 06/17/20 08:27 Hydralazine HCl (Apresoline) 25 mg Q8HR ORAL 06/16/20 14:00 09/13/20 20:59 06/17/20 05:27 Insulin Aspart (NovoLOG) BEFORE MEALS AND HS SUBQ 06/15/20 21:00 09/13/20 20:59 Insulin Detemir (Levemir) 24 units BEDTIME SUBQ 06/15/20 21:00 09/13/20 20:59 06/16/20 20:57 Iohexol (Omnipaque 350 100ml) 100 ml NOW PRN INJ Radiology Procedure 06/16/20 17:00 06/18/20 16:57 Nateglinide (Starlix) 60 mg TIAC ORAL 06/16/20 06:30 07/16/20 06:29 06/17/20 05:27 Pantoprazole (Protonix) 40 mg EVERY 12 HOURS ORAL 06/16/20 21:00 07/16/20 20:59 06/17/20 08:26 Sitagliptin Phosphate (Januvia) 100 mg ACBREAKFAST ORAL 06/16/20 06:30 07/16/20 06:29 06/17/20 05:27 Sodium Chloride 1,000 ml @ 100 mls/hr Q10H IV 06/16/20 17:00 07/16/20 16:59 06/17/20 03:49 Assessment/Plan Assessment/Plan IMPRESSION: 1. Metastatic carcinoma. 2. History of breast CA. 3. Hypertension. 4. Hypercalcemia DISCUSSION: The patient will benefit from ongoing chemotherapy with the primary care physician. I will continue pain management with [place]. IV saline hydration for hypercalcemia. DC home Harshil Fam M.D. Harshil Fam MD Jun 17, 2020 10:51
[2020-06-17 12:00] VITALS: BP_SYST 121; BP_SYST 161; BP_DIAS 76; BP_DIAS 78
--- NOTE | 2020-06-17 12:13 | Diagnostic Imaging Report ---
ndication: Chest pain, increasing back right rib and right arm discomfort Technique: IV administration nonionic contrast. Spiral acquisitions obtained from the lung bases to the lung apices. Multiplanar and 3-D reconstructions were generated. Total dose length product 178 mGycm. CTDIvol(s) 5, 30, 4 mGy. Dose reduction achieved using automated exposure control Comparison: Noncontrast chest CT dated 02/28/2020, chest CT angiogram dated 11/07/2019 Findings: There is good quality opacification of the pulmonary arteries. No intraluminal filling defects or other findings to suggest acute pulmonary embolus are demonstrated. Normal caliber pulmonary arteries. No evidence of right ventricular dilatation. The heart size is overall normal. No evidence of thoracic aortic aneurysm or dissection. Normal caliber and branching anatomy of the great neck vessels. Interim development of multiple nodules throughout the pulmonary parenchyma, most subcentimeter that some measuring up to 1.5 cm in diameter. There is circumferential pleural thickening on the right, comprise of a combination of confluent soft tissue opacities and more focal nodular thickening. This is more extensive than was evident on the prior study. There may be a small amount of pleural fluid as well, but this mostly appears to represent soft tissue. There are some areas of pulmonary parenchymal atelectasis but no definite infiltrates. There is increasing mediastinal adenopathy. The thyroid appears diffusely abnormal, with enlargement by multiple nodules, largest in the left lower pole measuring 2.7 cm in diameter. Again demonstrated is diffuse abnormality of the right breast, with a large area of ill-defined subareolar opacity and architectural distortion. This appears increased from the previous exam. Right axillary tail adenopathy is new or increased from the previous exam. The visualized mandible appears grossly abnormal, with evidence of considerable periodontal disease and dental disease. Interim development of osteolytic lesions involving the right posterolateral ninth rib the right scapula, the left third rib, left fourth rib. There is a fracture without definite osteolytic lesion of the right seventh rib and an acute or subacute fracture of the right sixth rib which is nonetheless new since the prior study. There is also evidence of osteolytic lesions involving L1, T12 and T10, T8. The included upper abdominal anatomy demonstrates bilateral adrenal masses, not clearly evident previously. Impression: No evidence of acute pulmonary embolus or other acute thoracic vascular pathology Evidence of progressive disseminated neoplasm, with bilateral parenchymal nodules, increasing circumferential right pleural tumor, increasing mediastinal lymphadenopathy, new or increased bilateral adrenal metastases, and multiple osseous lesions, as described. Interim progression of disease within the right breast, as well as new/increased right axillary tail lymphadenopathy Fractures of the left sixth and seventh ribs Incidental finding of mandibular dental and periodontal disease The CT scanner at [facility] is accredited by the [employer] and the scans are performed using protocols designed to limit radiation exposure to as low as reasonably achievable to attain images of sufficient resolution adequate for diagnostic evaluation.
--- NOTE | 2020-06-17 12:52 | NUR ---
NURSE NOTES: Patient discharged to home in stable condition. Discharge instructions given, verbalized understanding. IV lines removed. Telebox removed. Belongings accounted for. No new skin issues noted. Wheeled to lobby accompanied by nurse. Picked up by daughter.
--- NOTE | 2020-06-17 12:58 | Nephrology Progress Note ---
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 Thank you Subjective ROS Limited/Unobtainable: No Constitutional: Reports: malaise Objective Objective Last 24 Hour Vital Signs Date Time Temp Pulse Resp B/P (MAP) Pulse Ox O2 Delivery O2 Flow Rate FiO2 06/17/20 12:00 96.6 77 20 121/76 (91) 100 06/17/20 12:00 95 06/17/20 09:00 Room Air 06/17/20 08:26 87 128/78 06/17/20 08:00 90 06/17/20 08:00 98.7 87 18 128/78 (95) 96 06/17/20 05:27 143/88 06/17/20 04:00 92 06/17/20 04:00 98.3 88 18 143/88 (106) 96 06/17/20 00:52 91 177/96 06/17/20 00:00 91 06/17/20 00:00 98.5 91 18 177/96 (123) 96 06/16/20 21:00 Room Air 06/16/20 20:52 148/82 06/16/20 20:00 98.6 94 18 148/82 (104) 96 06/16/20 20:00 91 06/16/20 16:00 96.8 89 18 156/93 (114) 97 06/16/20 15:31 86 06/16/20 13:38 137/70 Intake and Output 06/16/20 06/17/20 19:00 07:00 Intake Total 360 ml Balance 360 ml Intake Oral 360 ml # Voids 4 2 Laboratory Tests 06/16/20 17:04: POC Whole Blood Glucose 101 06/16/20 17:26: Troponin I 0.000 06/17/20 05:44: Troponin I 0.000, White Blood Count 6.7, Red Blood Count 4.31, Hemoglobin 11.0L , Hematocrit 35.2L, Mean Corpuscular Volume 82, Mean Corpuscular Hemoglobin 25.5L, Mean Corpuscular Hemoglobin Concent 31.2L, Red Cell Distribution Width 14.2, Platelet Count 259, Mean Platelet Volume 7.5, Neutrophils (%) (Auto) 67.5 , Lymphocytes (%) (Auto) 21.2, Monocytes (%) (Auto) 5.6, Eosinophils (%) (Auto) 4.4H, Basophils (%) (Auto) 1.4, Sodium Level 143, Potassium Level 3.9, Chloride Level 107, Carbon Dioxide Level 27, Anion Gap 9, Blood Urea Nitrogen 12, Creatinine 1.0, Estimat Glomerular Filtration Rate 54.3, Glucose Level 69L, Uric Acid 7.0, Calcium Level 9.4, Phosphorus Level 4.3, Magnesium Level 2.5H, Total Bilirubin 0.6, Aspartate Amino Transf (AST/SGOT) 87H, Alanine Aminotransferase (ALT/SGPT) 27, Alkaline Phosphatase 95, C-Reactive Protein, Quantitative 4.0H, Pro-B-Type Natriuretic Peptide 127H, Total Protein 7.9, Albumin 3.1L, Globulin 4.8, Albumin/Globulin Ratio 0.6L, Triglycerides Level 70 , Cholesterol Level 141, LDL Cholesterol 72, HDL Cholesterol 55, Cholesterol/ HDL Ratio 2.6L, Thyroid Stimulating Hormone (TSH) 3.611 Height (Feet): 5 Height (Inches): 4.00 Weight (Pounds): 142 General Appearance: no apparent distress Cardiovascular: normal rate Respiratory/Chest: decreased breath sounds Abdomen: soft Marques Haines MD Jun 17, 2020 12:58
--- NOTE | 2020-06-18 00:18 | Cardiology Progress Note ---
Subjective DATE OF SERVICE: Jun 17, 2020 C/O right arm and rib discomfort - especially with a deep breath. No SOB. BP range better with adjusted meds yesterday. Objective Last 24 Hour Vital Signs Date Time Temp Pulse Resp B/P (MAP) Pulse Ox O2 Delivery O2 Flow Rate FiO2 06/17/20 12:00 96.6 77 20 121/76 (91) 100 06/17/20 12:00 95 06/17/20 09:00 Room Air 06/17/20 08:26 87 128/78 06/17/20 08:00 90 06/17/20 08:00 98.7 87 18 128/78 (95) 96 06/17/20 05:27 143/88 06/17/20 04:00 92 06/17/20 04:00 98.3 88 18 143/88 (106) 96 06/17/20 00:52 91 177/96 HEENT: normal ENT inspection RHYTHM: NSR LUNGS: right-sided rhonchi, other - diminished right base CARDIAC: normal rate, regular rhythm, normal S1 and S2, irregularly irregular ABDOMEN: normal bowel sounds, non tender, soft, no organomegaly EXTREMITIES: No edema Laboratory Tests Test 06/17/20 05:20 06/17/20 05:44 06/17/20 11:51 POC Whole Blood Glucose 83 MG/DL (74-106) 94 MG/DL (74-106) White Blood Count 6.7 K/UL (4.8-10.8) Red Blood Count 4.31 M/UL (4.20-5.40) Hemoglobin 11.0 G/DL (12.0-16.0) L Hematocrit 35.2 % (37.0-47.0) L Mean Corpuscular Volume 82 FL (80-99) Mean Corpuscular Hemoglobin 25.5 PG (27.0-31.0) L Mean Corpuscular Hemoglobin Concent 31.2 G/DL (32.0-36.0) L Red Cell Distribution Width 14.2 % (11.6-14.8) Platelet Count 259 K/UL (150-450) Mean Platelet Volume 7.5 FL (6.5-10.1) Neutrophils (%) (Auto) 67.5 % (45.0-75.0) Lymphocytes (%) (Auto) 21.2 % (20.0-45.0) Monocytes (%) (Auto) 5.6 % (1.0-10.0) Eosinophils (%) (Auto) 4.4 % (0.0-3.0) H Basophils (%) (Auto) 1.4 % (0.0-2.0) Sodium Level 143 MMOL/L (136-145) Potassium Level 3.9 MMOL/L (3.5-5.1) Chloride Level 107 MMOL/L (98-107) Carbon Dioxide Level 27 MMOL/L (21-32) Anion Gap 9 mmol/L (5-15) Blood Urea Nitrogen 12 mg/dL (7-18) Creatinine 1.0 MG/DL (0.55-1.30) Estimat Glomerular Filtration Rate 54.3 mL/min (>60) Glucose Level 69 MG/DL (74-106) L Uric Acid 7.0 MG/DL (2.6-7.2) Calcium Level 9.4 MG/DL (8.5-10.1) Phosphorus Level 4.3 MG/DL (2.5-4.9) Magnesium Level 2.5 MG/DL (1.8-2.4) H Total Bilirubin 0.6 MG/DL (0.2-1.0) Aspartate Amino Transf (AST/SGOT) 87 U/L (15-37) H Alanine Aminotransferase (ALT/SGPT) 27 U/L (12-78) Alkaline Phosphatase 95 U/L (46-116) Troponin I 0.000 ng/mL (0.000-0.056) C-Reactive Protein, Quantitative 4.0 mg/dL (0.00-0.90) H Pro-B-Type Natriuretic Peptide 127 pg/mL (0-125) H Total Protein 7.9 G/DL (6.4-8.2) Albumin 3.1 G/DL (3.4-5.0) L Globulin 4.8 g/dL Albumin/Globulin Ratio 0.6 (1.0-2.7) L Triglycerides Level 70 MG/DL (30-150) Cholesterol Level 141 MG/DL (< 200) LDL Cholesterol 72 mg/dL (<100) HDL Cholesterol 55 MG/DL (40-60) Cholesterol/HDL Ratio 2.6 (3.3-4.4) L Thyroid Stimulating Hormone (TSH) 3.611 uiU/mL (0.358-3.740) Microbiology Date/Time Source Procedure Growth Status 06/15/20 13:58 Blood Blood Culture - Preliminary NO GROWTH AFTER 24 HOURS Resulted 06/15/20 13:45 Blood Blood Culture - Preliminary NO GROWTH AFTER 24 HOURS Resulted 06/15/20 13:52 Nasopharynx SARS-CoV-2 RdRp Gene Assay - Final Complete 06/15/20 12:47 Urine,Clean Catch Urine Culture - Preliminary Mixed Gram Positive Organism Resulted CHEST XRAY: CT Angio of chest: negative for pulmonary emboli Assessment/Plan Assessment/Plan Pleuritic Chest Pain Metastatic breast CA Right pleural eff'n HypertensionHHD with improved BP range. NIDDM Hypercalcemia Elevated DDimers with no signs of Pulmonary emboli AntiHTn rx to continue as is. Analgesics DVT prophylaxis Artem Heath MD Jun 18, 2020 00:18
== END 2020-06-17 13:05 | disposition home or self-care (01) | DRG 180 ==
LOC: EMR 13:07 → OBSVTOIN 16:10 → INTOOBSV 16:10 → 2E 16:10 → EDBEDREQ 17:56
DX: C78.00 Secondary malignant neoplasm of unspecified lung (principal); J18.9 Pneumonia, unspecified organism; J91.0 Malignant pleural effusion; N39.0 Urinary tract infection, site not specified; E83.52 Hypercalcemia; R09.1 Pleurisy; E11.65 Type 2 diabetes mellitus with hyperglycemia; Z79.82 Long term (current) use of aspirin; Z85.3 Personal history of malignant neoplasm of breast; I11.9 Hypertensive heart disease without heart failure; Z92.3 Personal history of irradiation
CPT/HCPCS: 36415; 71045; 71275; 74176; 80053; 80061; 80307; 81003; 82962; 83036; 83605; 83690; 83735; 83880; 84100; 84443; 84484; 84550; 85025; 85379; 85610; 85730; 86140; 87040; 87086; 93005; 93306; 96361; 96365; 96367; 96375; 99285; J1815; J7030; S5561; U0002